=== PATIENT | female | born 1960 | race Caucasian/White ===

== ENCOUNTER → 2020-08-23 12:20 | Outpatient (CLI) | payer OTHER, SELFPAY ==
--- NOTE | ~2020-08-23 | MM_ITS ---
EXAMINATION: MM screening valerie BI w jet HISTORY: Screening mammogram TECHNIQUE: Craniocaudal and mediolateral oblique 3-D tomosynthesis images were obtained and synthetic 2-D images were generated. Bilateral rotated lateral cc views. CAD analysis was submitted and interp reted. COMPARISON: 06/09/2019 left diagnostic mammogram 05/26/2019, 05/09/2018, 04/2016 bilateral digital screening mammogram examinations BREAST PARENCHYMAL COMPOSITION: There are scattered areas of fibroglandular density. FINDINGS: There is no evidence of suspicious mass, calcification, or architectural distortion to sugg est malignancy in either breast. There has been no suspicious interval change. IMPRESSION: 1. No mammographic evidence of malignancy. 2. Recommend routine screening mammography in one year. BI-RADS Category 1: Negative Reviewed, dictated and finalized at location A. STRETCHER HAND
--- NOTE | ~2020-08-23 | DEXA_ITS ---
Bone Density Report Name: Jaelyn Colunga Age: 60 Sex: Female Ethnicity: White Date of : 1960 Indication: postmenopausal; screening for osteoporosis; height loss; prior fracture; Referring Provider: KIZZY, VIOLETA Study: Bone densitometry was performed. Exam Date: August 23, 2020 Accession number: [id number] Bone Density: Region BMD T-score Z-score Classification AP Spine (L1-L4) 1.233 1.7 3.2 Normal Femoral Neck (Right) 0.801 -0.4 0.9 Normal Total Hip (Right) 0.982 0.3 1.3 Normal World Health Organization criteria for BMD impression classify patients as: Normal (T-score at or above -1.0), Osteopenia (T-score between -1.0 and -2.5), or Osteoporosis (T-score at or below -2.5). 10-year Fracture Risk: FRAX not reported because: All T-scores for Spine Total, Hip Total, Femoral Neck at or above -1.0 Previous Exams: Region Exam Age BMD T-score BMD Change BMD Change Date g/cm2 vs Baseline vs Previous AP Spine(L1-L4) 08/23/2020 60 1.233 1.7 -0.046* -0.031 05/09/2018 57 1.264 2.0 -0.015 -0.015 04/01/2015 54 1.279 2.1 Total Hip(Right) 08/23/2020 60 0.982 0.3 -0.130* -0.066 05/09/2018 57 1.048 0.9 -0.064 -0.064 04/01/2015 54 1.112 1.4 *Denotes significance at 95% confidence level, LSC for AP Spine = 0.022 g/cm2, LSC for Total Hip = 0.027 g/cm2 Clinical Information Provided by Patient: Has had a low trauma fracture Has used the following medications: Vitamin D, Calcium, MTV Patient maximum height was 67 Menopause Age: 52 No regular weight bearing exercise Drinks caffeinated beverages Onset of menses at age 13 Number of children 4 Impression: The patient has normal bone mass. The patient has risk factors, including: previous fracture. No significant bone loss was observed. Discussion: BONE DENSITY IS ABOVE THE MINIMUM DESIRABLE LEVEL AT ALL SKELETAL SITES TESTED. This patient?s bone mineral density is above the minimum desirable level (T-score -1.0 or better) at all sites measured. The patient should follow a healthful lifestyle (good nutrition with adequate calcium and vitamin D, and appropriate weight-bearing exercise). Follow-Up: Consider repeating this study in 5 years or sooner if there is some new clinical indication. Reported by: HENRRY on 08/23/2020 12:51:00 PM. Reviewed, dictated and finalized at location AFranchesca LAFLEUR
== END ==
PROVIDERS: Visit Provider Nurse Practitioner
DX: Z12.31 Encounter for screening mammogram for malignant neoplasm of breast (principal); Z78.0 Asymptomatic menopausal state
CPT/HCPCS: 77063; 77067; 77080

== ENCOUNTER → 2021-11-17 11:23 | Outpatient (CLI) | payer OTHER, SELFPAY ==
--- NOTE | ~2021-11-17 | MM_ITS ---
EXAMINATION: MM screening valerie BI w jet HISTORY: Screening mammogram TECHNIQUE: Craniocaudal and mediolateral oblique 3-D tomosynthesis images were obtained and synthetic 2-D images were generated. CAD analysis was submitted and interpreted. COMPARISON: 09/02/2020 bilateral screening mammogram 06/09/2019 diagnostic left mammogram 05/26/2019, 05/09/2018 bilateral screening mammogram examinations BREAST PARENCHYMAL COMPOSITION: The breasts are almost entirely fatty. FINDINGS: There is no evidence of suspicious mass, calcification, or architectural distortion to sugg est malignancy in either breast. There has been no suspicious interval change. IMPRESSION: 1. No mammographic evidence of malignancy. 2. Recommend routine screening mammography in one year. BI-RADS Category 1: Negative Reviewed, dictated and finalized at location A.
== END ==
PROVIDERS: PCP Family Medicine; Visit Provider Obstetrics & Gynecology Gynecology
DX: Z12.31 Encounter for screening mammogram for malignant neoplasm of breast (principal)
CPT/HCPCS: 77063; 77067

== ENCOUNTER 2021-11-29 08:15 | Outpatient (RCR) | payer OTHER, SELFPAY ==
[2021-09-05 13:01] VITALS: BP_SYST 75
--- NOTE | 2021-09-05 14:18 | PTOPEVAL ---
PHYSICAL THERAPY INITIAL EVALUATION. Thank you for referring Jaelyn Colunga to [facility].? The patient is scheduled to be seen for therapy?2x/week for 5 weeks. Please review, sign, date and return this plan of care SERGE. I agree with and certify that the following plan of care is medically necessary. Referring Physician Date Attending Provider: Saurabh Grover, MD *PT Outpatient Evaluation Start: 09/05/21 Evaluation Information Diagnosis Post-op R shoulder biceps tenodesis Onset 08/17/21 Subjective Information Pt states she had chronic Query Text:As Reported By Patient/ shoulder pain for a long time, Family last year she received two cortisone injections. After the second injection, her referring provider suggested surgery. Pt had a arthroscopic subacromial decompression and open bicipital tenodesis on . She had a follow up with her surgeon on 08/30/21 and they were pleased with her progress so far. Her next follow up is 10/11/21. Pain Assessment Reported Pain Level 3 Pain Description Aching,Throbbing Pain Frequency Acute Lowest Pain Intensity 1 Greatest Pain Intensity 8 Pain Aggravating Factors Exercise/Activity,Lifting Additional Pain Comments Sharp pain during overhead movements Upper Extremity Range of Motion Right Shoulder Flexion - Active 78 Shoulder Flexion - Passive 108 Shoulder Abduction - Active 66 Shoulder Abduction - Passive 75 Shoulder Medial Rotation - Active PSIS Shoulder Lateral Rotation - Passive 42 Shoulder Lateral Rotation - Active occiput Upper Extremity Muscle Strength Testing General Upper Extremity Strength Reason Not Measured WFL/Left,Pain Gross Upper Extremity Strength Comments Grossly 2+/5, did not formally assess this date due to pain and ROM limitations Manual Therapy Manual Therapy Location Shoulder Patient Position Supine Manual Therapy Treatment Passive Stretching Treatment Comments Active flexion after passive Query Text:Include Technique and ROM 88 deg. PT Clinical Summary Jaelyn is a 61 y/o female status post a arthroscopic subacromial decompression and open biceps tenodesis after a
[2021-10-09 08:06] VITALS: BP_SYST 108
--- NOTE | 2021-10-09 08:53 | PTOPEVAL ---
PHYSICAL THERAPY PROGRESS REPORT. Thank you for referring Jaelyn Colunga to [facility] [place] [facility] [place] The patient is scheduled to continue therapy?2x/week for 4 weeks. Please review, sign, date and return this plan of care SERGE. I agree with and certify that the following plan of care is medically necessary. Referring Physician Date Attending Provider: Saurabh Grover, Evaluation Information Diagnosis Post-op R shoulder biceps tenodesis Onset 08/17/21 Subjective Information Pt states she is doing well, Query Text:As Reported By Patient/ she reports and demonstrates Family the ability to reach forward over her head, she is still having difficultly reaching behind her back. She is still having soreness and stiffness in the shoulder making it difficulty to sleep. She also reports her shoulder is more sore than she expected. Pain Assessment Self Report Pain Assessment Right Shoulder(s) Reported Pain Level 2 Pain Description Aching,Throbbing Greatest Pain Intensity 6 Upper Extremity Range of Motion Scapular/ Shoulder Range of Motion Right Reason Not Measured WFL/Left Shoulder Flexion - Active 122 Shoulder Flexion - Passive 108 Shoulder Abduction - Active 104 Shoulder Abduction - Passive 108 Shoulder Medial Rotation - Passive 52 Shoulder Medial Rotation - Active PSIS Shoulder Lateral Rotation - Passive 56 Shoulder Lateral Rotation - Active C7 Upper Extremity Muscle Strength Testing Gross Upper Extremity Strength Comments R shoulder flexion 4/5 L shoulder flexion 4+/5 R shoulder abduction 4-/5 L shoulder abduction 4/5 R shoulder ER/IR with elbow at 90deg 4/5 Posture Shoulder Posture (L) Rounded,(R) Rounded Scapula Posture (L) Protracted,(R) Protracted, (L) Rotated Up,(R) Rotated Up Palpation Assessment Palpation posterior deltoid, along lateral shaft of the humerus PT Clinical Summary Jaelyn presented to therapy today for her progress report following a subacromial decompression and biep tenodesis on 08/17/21, since then she has completed 8 therapy sessions. She is progressing in her strength,
--- NOTE | 2021-10-30 10:25 | PCPTNOTE ---
Patient called & cancelled scheduled appointment this date due to not feeling well.
--- NOTE | 2021-11-06 12:47 | PCPTNOTE ---
Patient called & cancelled scheduled appointment this date due to scheduling conflicts. She has rescheduled.
[2021-11-15 08:03] VITALS: BP_SYST 128
--- NOTE | 2021-11-15 09:55 | PTOPEVAL ---
PHYSICAL THERAPY PROGRESS REPORT. Thank you for referring Jaelyn Colunga to [facility].? The patient is scheduled to be seen for therapy? 2x/week for 6 weeks. Please review, sign, date and return this plan of care SERGE. I agree with and certify that the following plan of care is medically necessary. Referring Physician Date Attending Provider: Saurabh Grover, MD Evaluation Information Diagnosis Post-op R shoulder biceps tenodesis Onset 08/17/21 Subjective Information Pt states she is still really Query Text:As Reported By Patient/ limited with her range of Family motion and does not feel like she is progressing that way she should have been. She states it is still really difficult to reach behind her. Pt states she rolled over on her shoulder in the middle of the night and it caused her pain the rest of the night. She states her doctor would like her to get an injection to address the swelling since she is unable to take NSAIDs and then continue with therapy after that. Pain Assessment Self Report Pain Assessment Right Shoulder(s) Reported Pain Level 2 Greatest Pain Intensity 9 Upper Extremity Range of Motion General Upper Extremity Range of Motion WFL/Left Scapular/ Shoulder Range of Motion Left Reason Not Measured WFL/Left Shoulder Flexion - Active 124 Shoulder Flexion - Passive 135 Shoulder Abduction - Active 106 Shoulder Abduction - Passive 128 Shoulder Medial Rotation - Passive 52 Shoulder Medial Rotation - Active PSIS Shoulder Lateral Rotation - Passive 52 Shoulder Lateral Rotation - Active C7 Upper Extremity Muscle Strength Testing General Upper Extremity Strength WFL/Left,Pain Gross Upper Extremity Strength Comments R shoulder flexion 4+/5 L shoulder flexion 4+/5 R shoulder abduction 4/5 L shoulder abduction 4+/5 R shoulder ER/IR with elbow [id number] 4/5 Posture Shoulder Posture (L) Rounded,(R) Rounded Scapula Posture (L) Protracted,(R) Protracted, (L) Rotated Up,(R) Rotated Up Palpation Assessment Palpation superior aspect of the GH joint PT Clinical Summary Jaelyn presented to therapy today for her progress report following a subacromial
--- NOTE | 2021-11-23 13:49 | PCPTNOTE ---
Patient called & cancelled scheduled appointment on 11/22 and 11/27 due to receiving an injection in the shoulder.
--- NOTE | 2021-12-04 14:38 | PCPTNOTE ---
This treatment is being continued on visit number [id number]. Please see documentation on both accounts to view progress. Completed interventions, outcomes, and problems have been marked as Inactive to facilitate the copying of the Care plan routine for recurring accounts.
== END 2021-12-01 10:47 | disposition home or self-care (01) ==
LOC: ANHPT 08:15
PROVIDERS: PCP Family Medicine; Visit Provider Orthopaedic Surgery Orthopaedic Surgery of the Spine
DX: Z48.89 Encounter for other specified surgical aftercare (principal); M25.511 Pain in right shoulder; M75.81 Other shoulder lesions, right shoulder; Z98.890 Other specified postprocedural states
CPT/HCPCS: 97014; 97035; 97110; 97112; 97140; 97161; G0283

== ENCOUNTER 2021-12-27 08:00 | Outpatient (RCR) | payer OTHER, SELFPAY ==
[2021-12-01 10:47] VITALS: BP_SYST 128
--- NOTE | 2021-12-04 14:15 | PCPTNOTE ---
The treatment documented on this account is a continuation of the treatment documented on visit number [id number]. Please see documentation on both accounts to view progress. The Plan of Care has been transitioned and updated within the new V#. I have addressed and agree with the discipline specific Problems, Interventions, and Goals for the current certification period. Completed interventions, outcomes, and problems have been marked as Inactive to facilitate the copying of the Care plan routine for recurring accounts.
--- NOTE | 2021-12-12 07:36 | PCPTNOTE ---
Patient called & cancelled scheduled appointment this date due to emergency with dog needing to take to vet.
[2021-12-27 08:03] VITALS: BP_SYST 132
--- NOTE | 2021-12-27 08:34 | PTOPEVAL ---
PHYSICAL THERAPY PROGRESS REPORT AND DISCHARGE SUMMARY. Thank you for referring Jaelyn Colunga to [facility].? The patient is to be discharged from skilled therapy services at this time. Please review, sign, date and return this plan of care SERGE. I agree with and certify that the following plan of care is medically necessary. Referring Physician Date Attending Provider: Saurabh Grover, MD *PT Outpatient Evaluation Start: 12/27/21 Evaluation Information Diagnosis Post-op R shoulder biceps tenodesis Onset 08/17/21 Subjective Information Pt states her strength is Query Text:As Reported By Patient/ doing excellent. Pt states she Family has received all of her motion except for reaching behind her back, she is able to reach completely over her head and into the back seat of her car. She reports still intermittent achiness but nothing like before. Pt states daily activities do not cause her an increase in pain, only when working on her int rot stretch at home. Pain Assessment Self Report Pain Assessment Right Shoulder(s) Reported Pain Level 0 Greatest Pain Intensity 0 Upper Extremity Range of Motion Scapular/ Shoulder Range of Motion Right Shoulder Flexion - Active 132 Shoulder Flexion - Passive 142 Shoulder Abduction - Active 136 Shoulder Abduction - Passive 132 Shoulder Medial Rotation - Passive 55 Shoulder Medial Rotation - Active T12, off to the R Shoulder Lateral Rotation - Passive 65 Shoulder Lateral Rotation - Active T3 Scapular/Shoulder Range of Motion passive abduction measured in Comments true abduction passive shoulder ext/int rot measure in 90 deg of abduction Upper Extremity Muscle Strength Testing Gross Upper Extremity Strength Comments BUE grossly 5/5 including shoulder flexion, abduction, ext rot, int rot, and elbow flexion and extension Posture Shoulder Posture (L) Rounded,(R) Rounded Palpation Assessment Palpation none reported PT Clinical Summary Jaelyn presents to therapy today for her progress report following 22 visits of skilled therapy to treat her diagnosis of R shoulder biceps tenodesis performed on 08/17/21
== END 2021-12-27 13:52 | disposition home or self-care (01) ==
LOC: ANHPT 08:00
PROVIDERS: PCP Family Medicine; Visit Provider Orthopaedic Surgery Orthopaedic Surgery of the Spine
DX: Z48.89 Encounter for other specified surgical aftercare (principal); M25.511 Pain in right shoulder; M75.81 Other shoulder lesions, right shoulder; Z98.890 Other specified postprocedural states
CPT/HCPCS: 97110; 97112; 97140; 97530

== ENCOUNTER 2023-01-04 19:54 | Emergency (ER) | payer OTHER, SELFPAY ==
--- NOTE | ~2023-01-04 | CT_ITS ---
EXAMINATION: CT cervical spine wo con DATE: 01/04/2023 21:36 INDICATION: neck pain TECHNIQUE: Computed tomography (CT) of the cervical spine was performed without intravenous contrast. Automated exposure control and iterative reconstruction technique were employed. The dose-length pro duct was 536.10 mGy-cm. COMPARISON: 08/27/2018. FINDINGS: Vertebral Body Alignment: Intact. Cervical spine straightening as can occur with positioning or muscl e spasm. Trace stable retrolisthesis at C5-6. Craniocervical and atlantoaxial alignment: Moderate degenerative change. Alignment intact. Osseous structures/fracture: No evidence of a lytic or blastic process in the visualized spine. No e vidence of acute fracture. At Cervical soft tissues: The paraspinal soft tissues planes are maintained. Degenerative changes: Degenerative changes, without severe neural foraminal or central canal narrowin g. IMPRESSION: No acute fracture or traumatic malalignment in the cervical spine. Reviewed, dictated and finalized at location K.
--- NOTE | ~2023-01-04 | CT_ITS ---
EXAMINATION: CT brain wo con DATE: 01/04/2023 21:36 INDICATION: head injury . TECHNIQUE: Computed tomography (CT) of the head was performed without intravenous contrast. The mA wa s adjusted according to patient size. Iterative reconstruction technique was employed. The dose-lengt h product was 681.00 mGy-cm. COMPARISON: 08/17/2018. FINDINGS: No acute intracranial hemorrhage or extra-axial fluid collection. No hydrocephalus, mass, or herniation. No acute ischemic infarct. Unremarkable dural venous sinus attenuation. No acute osseous abnormality. Left posterior scalp contusion. The aerated spaces are clear. Mild atrophy and chronic white matter change. Atherosclerotic intracranial calcification. IMPRESSION: No acute intracranial process. Reviewed, dictated and finalized at location K.
[2023-01-04 20:02] VITALS: BP 144/85; PULSE 71; RESP 18; TEMP 36.3; O2SAT 100
--- NOTE | 2023-01-04 21:14 | ED.GENADULT ---
HPI - General Adult General Chief complaint: Trauma Stated complaint: fall off ladder-1/2 steps Time Seen by Provider: 01/04/23 20:21 History of Present Illness HPI narrative: 62-year-old female presented the emergency department for evaluation after having a fall from a ladder. Patient states she did fall back strike her head and is unsure if she had loss of consciousness. Patient was complaining of head neck pain. Patient denies any back chest or abdominal pain. Patient denies any other pain or injury. Patient is not on any blood thinners. Patient did not take medication for pain control at home. Related Data Allergies Allergy/AdvReac Type Severity Reaction Status Date / Time aspirin Allergy Unknown Ulcers Verified 01/04/23 20:06 NSAIDS (Non-Steroidal Allergy Unknown Ulcers Verified 01/04/23 20:06 Anti-Inflamma Review of Systems Review of Systems: All systems reviewed & are unremarkable except as noted in HPI and below PMFSH Past Medical History Medical History Chronic insomnia HTN (hypertension) Hypothyroidism Tremor Vitamin D deficiency, unspecified Surgical History Surgical History H/O gastric bypass Family History Family History Father Hypertension Family history of cardiovascular disease Family history of heart disease in male family member before age 55 Sibling Hypertension Family history of cardiovascular disease Family history of diabetes mellitus in first degree relative Family history of type 2 diabetes mellitus Patient's brother is , Onset Age: 55 Acute myocardial infarction, Onset Age: 55 Mother Family history of cardiovascular disease Patient's mother is , Onset Age: 81 Father Diabetes mellitus Hypertension Sibling Hypertension Family history of cardiovascular disease, Onset Age: 65 Mother Family history of cardiovascular disease Other Cerebrovascular accident Family history of arthritis Social History Social History Smoking status: Never smoker Second hand tobacco smoke exposure: No Alcohol intake: current Alcohol use details: social drinker Substance use: never Substance use type: does not use Living arrangements: with family Occupation/Education: retired Gender identity (if verbalized by the patient): Female Exam Narrative: APPEARANCE: Well appearing, no pain, no distress, well-nourished. HEAD: normocephalic, posterior scalp hematoma. EYES: PERRLA/EOMI, conjunctivae clear. NOSE: Normal no drainage EARS:TMS clear with good light reflex. THROAT: Pharynx clear, no exudate. NECK: Supple. No adenopathy, no masses. Patient is in a c-collar RESPIRATORY: Airway patent, respirations nonlabored. Clear to auscultation bilaterally, no rales, rhonchi, wheezing. CARDIOVASCULAR: Regular rate and rhythm without murmurs rubs or gallops. ABDOMINAL: Soft, nontender, nondistended, normal bowel sounds MUSCULOSKELETAL: Moves all extremities. Strength/ROM intact, No edema, No calf tenderness. NEURO: Alert. Cranial nerves II through XII intact. Grossly intact SKIN: Warm, dry. Normal Color Course Course Emergency Course: 62-year-old female presented ED for evaluation after having a fall from a ladder. Patient denies any other pain or injury other than her head and neck. Imaging was negative for acute fracture or dislocation. Patient and family were updated on the results of the work-up and plan for discharge and close follow-up. They also educated on symptomatic treatment at home and on reasons to return the emergency department and on the importance of close follow-up with the patient's primary care physician. All question concerns were addressed. Patient was stable at time of discharge Vital Signs
[2023-01-04] MEDS: CYCLOBENZAPRINE HCL 10 MG TABLET PO (21:19)
[2023-01-04] MEDS: HYDROmorphone HCL INJ (*CRX) 1 MG/ML SYR 0.5 MG IV PUSH (21:19)
[2023-01-04] MEDS: ONDANSETRON INJ 4 MG/2 ML VIAL IV PUSH (21:51)
== END 2023-01-04 22:38 | disposition home or self-care (01) ==
PROVIDERS: Emergency Provider Emergency Medicine; PCP Family Medicine
DX: S09.90XA Unspecified injury of head, initial encounter (principal); W11.XXXA Fall on and from ladder, initial encounter; I10 Essential (primary) hypertension; E03.9 Hypothyroidism, unspecified; Z79.82 Long term (current) use of aspirin
CPT/HCPCS: 70450; 72125; 96374; 96375; 99284; A9270; J1170; J2405

== ENCOUNTER → 2023-06-11 13:31 | Outpatient (CLI) | payer OTHER, SELFPAY ==
--- NOTE | ~2023-06-11 | US_ITS ---
Thyroid ultrasound. Clinical History: Thyroid nodule COMPARISON: 11/01/2017 Findings: Real-time sonography of the thyroid gland was performed. The right lobe measures 4.8 x 1.8 x 1.7 cm. The left lobe measures 4.6 x 1.4 x 1.4 cm. The isthmus is 2 mm in AP diameter. Thyroid parenchyma is diffusely heterogeneous. There is a 9 mm hyperechoic solid nodule at the left u pper pole (TIRADS 3). There is a 1.4 x 0.5 cm hypoechoic solid nodule at the inferior right side of t he isthmus (TIRADS 4). Impression: Thyroid nodules, as detailed above, probably unchanged from prior exam. Reviewed, dictated and finalized at location M. [employer] AND [employer] PROFESSOR Impression: Thyroid nodules, as detailed above, probably unchanged from prior exam.
== END ==
PROVIDERS: PCP Nurse Practitioner; Visit Provider Nurse Practitioner
DX: E04.2 Nontoxic multinodular goiter (principal)
CPT/HCPCS: 76536

== ENCOUNTER 2023-10-01 13:27 | Outpatient (CLI) | payer OTHER, SELFPAY ==
--- NOTE | ~2023-10-01 | MM_ITS ---
EXAMINATION: MM screening valerie BI w jet HISTORY: Screening TECHNIQUE: Craniocaudal and mediolateral oblique 3-D tomosynthesis images were obtained and synthetic 2-D images were generated. CAD analysis was submitted and interpreted. COMPARISON: Comparison to multiple prior studies sequentially, with oldest reviewed study dated 10/2015. BREAST PARENCHYMAL COMPOSITION: Not Dense: Breast are almost entirely fatty. FINDINGS: There is no evidence of suspicious mass, calcification, or architectural distortion to sugg est malignancy in either breast. There has been no suspicious interval change. IMPRESSION: 1. No mammographic evidence of malignancy. 2. Recommend routine screening mammography in one year. BI-RADS Category 1: Negative Reviewed, dictated and finalized at location A.
== END 2023-10-01 13:28 ==
LOC: MICIMG 13:28
PROVIDERS: PCP Nurse Practitioner; Visit Provider Nurse Practitioner
DX: Z12.31 Encounter for screening mammogram for malignant neoplasm of breast (principal)
CPT/HCPCS: 77063; 77067

== ENCOUNTER 2024-10-20 09:50 | Outpatient (CLI) | payer MEDICARE, OTHER, SELFPAY ==
--- NOTE | ~2024-10-20 | US_ITS ---
Thyroid ultrasound. Clinical History: Thyroid nodule COMPARISON: 06/11/2023 Findings: Real-time sonography of the thyroid gland was performed. The right lobe measures 4.4 x 2.1 x 1.4 cm. The left lobe measures 4.4 x 1.4 x 1.8 cm. The isthmus is 3 mm in AP diameter. Thyroid parenchyma is diffusely heterogeneous. There is a 0.9 x 0.7 x 0.6 cm solid hyperechoic circum scribed nodule at the left upper pole, unchanged. Impression: Stable diffusely heterogeneous thyroid parenchyma, as well as stable 9 mm hyperechoic solid nodule at the left upper pole.. Reviewed, dictated and finalized at location . Impression: Stable diffusely heterogeneous thyroid parenchyma, as well as stable 9 mm hyper echoic solid nodule at the left upper pole..
--- NOTE | ~2024-10-20 | MM_ITS ---
EXAMINATION: MM screening [facility] BI w jet HISTORY: Screening TECHNIQUE: Craniocaudal and mediolateral oblique 3-D tomosynthesis images were obtained and synthetic 2-D images were generated. CAD analysis was submitted and interpreted. COMPARISON: Comparison to multiple prior studies sequentially, with oldest reviewed study dated 04/15. BREAST PARENCHYMAL COMPOSITION: Not Dense: The breasts are almost entirely fatty. FINDINGS: There is no evidence of suspicious mass, calcification, or architectural distortion to sugg est malignancy in either breast. There has been no suspicious interval change. IMPRESSION: 1. No mammographic evidence of malignancy. 2. Recommend routine screening mammography in one year. BI-RADS Category 1: Negative Reviewed, dictated and finalized at location A.
== END 2024-10-20 09:51 | disposition home or self-care (01) ==
LOC: MICIMG 09:52
PROVIDERS: PCP Family Medicine; Visit Provider Nurse Practitioner
DX: Z12.31 Encounter for screening mammogram for malignant neoplasm of breast (principal); E03.9 Hypothyroidism, unspecified; E04.1 Nontoxic single thyroid nodule
CPT/HCPCS: 76536; 77063; 77067

== ENCOUNTER 2024-12-22 01:28 | Day surgery (SDC) | payer MEDICARE, OTHER, SELFPAY ==
[2024-12-11 13:21] VITALS: BMI 35.2
--- OUTSIDE RECORDS SUMMARY | 2024-12-22 01:32 | XMS_ITS | Clinical Summary ---
Author Organization [facility] Address [facility] [place] [address] Care Team Providers Care Marine Equipment Sales Engineer Name Role Phone Vicente Chavez MD Primary Care Provider Allergies Active Allergy Reactions Criticality Noted Date Comments Hydromorphone Itching Low 07/16/2018 Can tolerate with benadryl Nsaids (Non-Steroidal Anti-Inflammatory Drug) Other (See comments) Low 07/02/2018 Pt has gastric bypass Medications zolpidem (AMBIEN) 10 mg tabletIndicati ons:Sleep-Onse t Insomnia Take 1 tablet (10 mg total) by mouth nightly Active calcium citrate-vitami n D3 (CITRACAL WITH D) 315-250 mg-unit per tabletIndicati ons:Hypocalcem ia Prevention,Vit chand D Deficiency Take 1 tablet by mouth nightly Active multivitamin capsuleIndicat ions:Vitamin Deficiency Prevention Take 1 capsule by mouth nightly Active acetaminophen (TYLENOL) 325 mg tablet Take 2 tablets (650 mg total) by mouth every 6 (six) hours as needed for pain Active lisinopriL (PRINIVIL,ZEST RIL) 5 mg tabletIndicati ons:hypertensi on Take 1 tablet (5 mg total) by mouth every morning Active cyanocobalamin , vitamin B-12, (VITAMIN B-12 ORAL)Indicatio ns:supplement Take 1 tablet by mouth nightly Active BIOTIN ORALIndication s:supplement Take 1 tablet by mouth nightly Active levothyroxine (SYNTHROID) 125 mcg tabletIndicati ons:hypothyroi dism Take 1 tablet (125 mcg total) by mouth pararescue manager before breakfast 07/30/19 23 Active primidone (MYSOLINE) 50 mg tablet TAKE 1 TABLET(50 MG) BY MOUTH TWICE DAILY 60 tablet 3 12/09/19 25 Active primidone (MYSOLINE) 50 mg tablet Take 1 tablet (50 mg total) by mouth 2 (two) times a day 60 tablet 3 08/10/19 25 025 Discontinued Active Problems Problem Noted Date Diagnosed Date Trigger ring finger of right hand 09/22/2023 Mild aortic stenosis 08/07/2022 Chest tightness 12/22/2021 Tear of right rotator cuff 06/20/2021 Overview (06/20/2021): Added automatically from request for surgery [id number] Biceps tendinitis of right upper extremity 06/20 Overview (06/20/2021): Added automatically from request for surgery [id number] Symptomatic PVCs 11/18/2020 Mild mitral regurgitation 05/13/2020 Orthostatic hypotension 05/13/2020 Paroxysmal atrial tachycardia 05/13/2020 Tremor 03/15/2020 Trigger middle finger of left hand 06/16/2019 Overview (06/16/2019): Added automatically from request for surgery [id number] Ganglion cyst of finger 06/16/2019 Overview (06/16/2019): Added automatically from request for surgery [id number] Subclinical iodine-deficiency hypothyroidism Trochanteric bursitis of left hip 07/30/2018 Overview (07/30/2018): Added automatically from request for surgery [id number] Trigger middle finger of right hand 06/19/2018 Overview (06/19/2018): Added automatically from request for surgery [id number] Fall from horse 02/08/2018 Closed nondisplaced fracture of base of second metacarpal bone of left hand 02/07/2018 Fracture of multiple ribs of left side 8 Hypothyroidism 07/02/2017 Arthralgia of hip 04/08/2017 Primary osteoarthritis of shoulder 01/08/2017 Strain of muscle, fascia and tendon at neck level, initial encounter 01/08/2017 DVT prophylaxis 01/17/2015 Morbid obesity with BMI of 45.0-49.9, adult 12/2014 Hypothyroidism 01/17/2015 DJD (degenerative joint disease) of knee 014 Family history of premature CAD 11/17/2013 Morbidly obese 11/17/2013 Pain of hand 03/20/2013 Encounter for preventive health examination 02/14 Essential hypertension, benign 11/08/2010 Thyroid nodule 11/08/2010 Overview (09/24/2022): Overview: Left upper 1.0 cm Left upper 1.0 cm Vitamin D deficiency 11/08/2010 Surgical History Surgery Date Site/Laterality Comments GASTRIC BYPASS 07/15/2014 - 07/14/2015 has lost 140lbs total MA CHOLECYSTECTOMY 07/15/2002 - 07/14/2003 INCISIONAL HERNIA REPAIR 07/15/2004 - 07/14/2005 x2, umbilical s/p tubal 1995 & 2004 TRIGGER FINGER RELEASE 07/16/2018 Left long CARPAL TUNNEL RELEASE 07/15/2012 - 07/14/2013 Bilateral SECTION 07/15/1993 - 07/14/1994 HIP SURGERY 08/15/2018 - 09/11/2018 Left bursectomy and tendon repair with hardware COLONOSCOPY TUBAL LIGATION 07/15/1993 - 07/14/1994 FLUORO GUIDED INJECTION SHOULDER RIGHT 04/20/2021 Right HAND SURGERY 07/15/2012 - 07/14/2013 Right hand fracture with plate, pins, screws FLUORO GUIDED INJECTION SHOULDER RIGHT 11/27/2021 Right SHOULDER ARTHROSCOPY 08/17/2021 Right Medical History Medical History Date Comments Hypothyroidism well controlled with meds Fracture 01/2018 fell off horse a nd fractured left wrist and 3left ribs. No surgery required. Note in EPIC stating fractures are healed Hot flashes HTN (hypertension) Insomnia Tremors of nervous system bilat UE., right > Left. worse with stress, well controlled on daily meds Palpitations neg work up 2019 Family History Medical History Relation Name Comments Heart disease Brother 1 Family history of cardiac disorder - (Added by TW Conv) Diabetes Brother 2 Alok Family history of diabetes mellitus - (Added by TW Conv) Heart disease Brother 2 Alok Hypertension Brother 2 Alok Hypertension Brother 3 Family history of hypertension - (Added by TW Conv) Thyroid disease Daughter Thyroid trou ble - (Added by TW Conv) Diabetes Father Raza Family history of diabetes mellitus - (Added by TW Conv) Heart disease Father Raza Family history of cardiac disorder - (Added by TW Conv) Hypertension Father Raza Family history of hypertension - (Added by TW Conv) Stroke Father Raza Family history of cerebrovascular accident (CVA) - (Added by TW Conv) Heart disease Mother Jessica Family history of cardiac disorder - (Added by TW Conv) Stroke Mother Jessica Family history of cerebrovascular accident (CVA) - (Added by TW Conv) Heart disease Sister 1 Lela Family history of cardiac disorder - (Added by TW Conv) Diabetes Sister 2 Abbi Family history of diabetes mellitus - (Added by TW Conv) Hypertension Sister 3 Family history of hypertension - (Added by TW Conv) Anesthesia problems Neg Hx Relation Name Status Comments Brother 1 Brother 2 Alok Brother 3 Daughter Father Raza Mother Jessica Sister 1 Lela Sister 2 Abbi Sister 3 Social History Tobacco Use Types Packs/Day Years Used Date Smoking Tobacco: Never Smokeless Tobacco: Never Tobacco Cessation:Counseling Given: Not Answered Alcohol Use Standard Drinks/Week Comments Yes 0 (1 standard drink = 0.6 oz pure alcohol) rarely--1 drink every 3-4 months AUDIT-C Answer Date Recorded Q1: How often do you have a drink containing alc ohol? 2-4 times a month 10/09/2023 Q2: How many drinks containi ng alcohol do you have on a typical day when you are drinking? 1 or 2 10/09/2023 Q3: How often do you have si x or more drinks on one occasion? Never 10/09/2023 Personal Safety Answer Date Recorded Have you ever been in or are you currently in a harmful physical or emotional relationship or is someone making you feel afraid or unsafe? Denies 10/09/2023 Comments No Sex and Gender Information Value Date Recorded Sex Assigned at Not on file Legal Sex Female 10:05 AM STREETS AND BUILDINGS DECORATOR Gender Identity Not on file Sexual Orientation Not on file Occupation Industry Job Start Date Job End Date Not Employed Not on file Not on file Not on file Obstetrics History Last Filed Vital Signs Vital Sign Reading Time Taken Comments Blood Pressure 149/81 08/10/2024 9:39 AM STREETS AND BUILDINGS DECORATOR Pulse 65 08/10/2024 9:39 AM STREETS AND BUILDINGS DECORATOR Temperature 36.1 C (97 F) 10/09/2023 9:35 AM CDT Respiratory Rate 11 10/09/2023 10:50 AM CDT Oxygen Saturation 97% 08/10/2024 9:39 AM STREETS AND BUILDINGS DECORATOR Inhaled Oxygen Concentration - - Weight 103 kg (227 lb) 08/10/2024 9:39 AM STREETS AND BUILDINGS DECORATOR Height 170.2 cm (5' 7.01) 08/10/2024 9:39 AM CS T Body Mass Index 35.54 08/10/2024 9:39 AM STREETS AND BUILDINGS DECORATOR Plan of Treatment Health Maintenance Due Date Last Done Comments Breast Cancer Screening-Mammogram 1959 Cervical Cancer Screening 1959 Colon Cancer Screening-Colonoscopy 1959 Depression Screening 1959 Hepatitis C Screening 1959 Osteoporosis Screening-Bone Density Scan 1959 DTaP/Tdap/Td Vaccine (1 - Tdap) 1970 Hepatitis B Screening 1977 Pneumococcal vaccine 65+ (1 of 1 - PCV) 2009 Zoster Vaccine (1 of 2) 2009 Covid-19 Vaccine (4 - season) 2024 06/05/2021, 09/29/2020, 09/08/2020 Well Visit 65+ 2024 Fall Risk Assessment 10/08/2024 10/09/2023 Influenza Vaccine (Season Ended) 2025 04/25/20 20 Medical Devices Implanted Type Area Residential Pest Control Technician Device Identifier Shelf Expiration Date Model / Serial / Lot Plate Right: Hand [employer] [id number] Swivelock Tigerwire Arthrex 4.75mm 22mm 2 Load 2 Tip Retention - S0 - [id number] Implanted:Qty: 4 on 09/04/2018 by Letitia Diaz MD at [facility] [employer] 05/14/2020 [id number] -[id number] / 0 / [id number] [employer] Ar-3670 Set Implant Arthrex Fibertak Biceps Sterile Latex Free - [id number] Implanted:Qty: 1 on 08/17/2021 by Saurabh Grover MD at [facility] Right: Shoulder [employer] 05/14/2026 AR-3670 / / [id number] Insurance [facility] CLAIMS [facility] CLAIMS MEDICARE FOR LIFE Care Teams Marine Equipment Sales Engineer Relationship Specialty Start Date End Date Vicente Chavez MD [address] [place] [address] PCP - General Family Medicine 01/26/19
--- OUTSIDE RECORDS SUMMARY | 2024-12-22 01:32 | XMS_ITS | Referral Summary ---
Author Organization [facility] Address [facility] [place] [address] Care Team Providers Care Tin Container Straightener Name Role Phone Vicente Chavez MD Primary [...] 1 tablet (125 mcg total) by mouth hemstitcher before breakfast 07/30/19 23 Active primidone (MYSOLINE) [...] (06/20/2021): Added automatically from request for surgery [id number] Biceps tendinitis of right upper extremity 06/20 Overview (06/20/2021): Added automatically from request for surgery [id number] Symptomatic PVCs 11/18/2020 Mild mitral regurgitation 05/13/2020 Orthostatic hypotension 05/13/2020 Paroxysmal atrial tachycardia 05/13/2020 Tremor 03/15/2020 Trigger middle finger of left hand 06/16/2019 Overview (06/16/2019): Added automatically from request for surgery [id number] Ganglion cyst of finger 06/16/2019 Overview (06/16/2019): Added automatically from request for surgery [id number] Subclinical iodine-deficiency hypothyroidism Trochanteric bursitis of left hip 07/30/2018 Overview (07/30/2018): Added automatically from request for surgery [id number] Trigger middle finger of right hand 06/19/2018 Overview (06/19/2018): Added automatically from request for surgery [id number] Fall from horse 02/08/2018 Closed nondisplaced fracture of base of second metacarpal bone of left hand 02/07/2018 Fracture of multiple ribs of left side 8 Hypothyroidism 07/02/2017 Arthralgia of hip 04/08/2017 Primary osteoarthritis of shoulder 01/08/2017 Strain of muscle, fascia and tendon at neck level, initial encounter 01/08/2017 DVT prophylaxis 01/17/2015 Morbid obesity with BMI of 45.0-49.9, adult 0 12/2014 Hypothyroidism 01/17/2015 DJD (degenerative joint disease) of knee 014 Family history of premature CAD 11/17/2013 Morbidly obese 11/17/2013 Pain of hand 03/20/2013 Encounter for preventive health examination 02/14 Essential hypertension, benign 11/08/2010 Thyroid nodule 11/08/2010 Overview (09/24/2022): Overview: Left upper 1.0 cm Left upper 1.0 cm Vitamin D deficiency 11/08/2010 Social History Tobacco Use Types Packs/Day Years [...] on file Legal Sex Female 10:05 AM HOT STRIP FINISHER Gender Identity Not on file Sexual Orientation Not on file Occupation Industry Job Start Date Job End Date Not Employed Not on file Not on file Not on file Last Filed Vital Signs Vital Sign Reading Time Taken Comments Blood Pressure 149/81 08/10/2024 9:39 AM HOT STRIP FINISHER Pulse 65 08/10/2024 9:39 AM HOT STRIP FINISHER Temperature 36.1 C (97 F) 10/09/2023 9:35 AM CDT Respiratory Rate 11 10/09/2023 10:50 AM CDT Oxygen Saturation 97% 08/10/2024 9:39 AM HOT STRIP FINISHER Inhaled Oxygen Concentration - - Weight 103 kg (227 lb) 08/10/2024 9:39 AM HOT STRIP FINISHER Height 170.2 cm (5' 7.01) 08/10/2024 9:39 AM CS T Body Mass Index 35.54 08/10/2024 9:39 AM HOT STRIP FINISHER Plan of Treatment Not on file Medical Devices Implanted Type Area Leasing Professional Device Identifier Shelf Expiration Date Model / Serial / Lot Plate Right: Hand [employer] [id number] Swivelock Tigerwire Arthrex 4.75mm 22mm 2 Load 2 Tip Retention - S0 - [id number] Implanted:Qty: 4 on 09/04/2018 by Letitia Diaz MD at [facility] [employer] 05/14/2020 [id number] -[id number] / 0 / [id number] [employer] Ar-3670 Set Implant Arthrex Fibertak Biceps Sterile Latex Free - [id number] Implanted:Qty: 1 on 08/17/2021 by Saurabh Grover MD at [facility] Right: Shoulder [employer] 05/14/2026 AR-[id number] / / [id number] Insurance [facility] CLAIMS [facility] CLAIMS MEDICARE FOR LIFE Care Teams Tin Container Straightener Relationship Specialty Start Date End Date Vicente Chavez MD [address] [place] [address] PCP - General Family Medicine 01/26/19
--- OUTSIDE RECORDS SUMMARY | 2024-12-22 01:32 | XMS_ITS | Clinical Summary ---
Author Organization [facility] Address [address] [place] [address] Phone Care Team Providers Care Administrative Resident Name Role Phone Vicente Chavez MD Primary Care Provider [phone] Allergies Active Allergy Reactions Criticality Noted Date Comments Hydromorphone Itching Low 07/16/2018 If she takes pain killers- she has to take benadryl with it Nsaids (Non-Steroidal Anti-Inflammatory Drug) Other (See Comments) Low 07/02/2018 Pt has gastric bypass Medications zolpidem (AMBIEN) 10 mg tablet Take 10 mg by mouth nightly as needed. Active MULTIVITAMIN ORAL Take by mouth. Active acetaminophen (TYLENOL) 500 mg tablet Take 2 Tablets (1,000 mg) by mouth every 8 hours as needed for Pain Do not exceed 4,000mg/day. 02/09/2018 Active calcium citrate-vitamin d3 (CITRACAL D MAX) 315 mg- 250 unit Tablet Take 1 Tablet by mouth daily at bedtime. Active levothyroxine 150 mcg tablet Take 125 mcg by mouth daily in the morning. Active primidone (MYSOLINE) 50 mg tablet Take 50 mg by mouth 2 times daily. Active CYANOCOBALAMIN, VITAMIN B-12, ORAL Take by mouth. Active VIT B COMP NO.3-RGPNG-T-BI OTIN ORAL Take by mouth. Active lisinopriL (PRINIVIL) 5 mg tablet TAKE 1 TABLET BY MOUTH EVERY DAY 90 Tablet 3 10/19/2024 Active atorvastatin (LIPITOR) 10 mg tablet Take 1 Tablet by mouth daily. 08/19/2024 Active Active Problems Patient Care Coordination No te Formatting of this note migh t be different from the original. Alexi Burch MD at [facility] - CV Problem Noted Date Diagnosed Date Mild aortic stenosis 08/07/2022 Chest tightness 12/22/2021 Symptomatic PVCs 11/18/2020 Orthostatic hypotension 05/13/2020 Paroxysmal atrial tachycardia 05/13/2020 Mild mitral regurgitation 05/13/2020 Fall from horse 02/08/2018 Fracture of multiple ribs of left side 8 Closed nondisplaced fracture of base of second metacarpal bone of left hand 02/07/2018 Hypothyroidism 01/17/2015 Morbid obesity with BMI of 45.0-49.9, adult 12/2014 DVT prophylaxis 01/17/2015 DJD (degenerative joint disease) of knee 014 Morbidly obese 11/17/2013 Family history of premature CAD 11/17/2013 Thyroid nodule 11/08/2010 Overview (11/08/2010): Left upper 1.0 cm Vitamin D deficiency 11/08/2010 Essential hypertension, benign 11/08/2010 Subclinical iodine-deficiency hypothyroidism Encounters Date Type Department Care Team Description 12/08/2024 External Device Data [facility] ABSTRACTION Provider, Abstract 12/02/2024 External Device Data [facility] ABSTRACTION Provider, Abstract 12/01/2024 External Device Data [facility] ABSTRACTION Provider, Abstract 11/10/2024 External Device Data [facility] ABSTRACTION Provider, Abstract 11/10/2024 External Device Data [facility] ABSTRACTION Provider, Abstract 11/06/2024 8:45 AM CDT Office Visit [facility] [address] [address] [place] [address] Alexi Burch MD Essential hypertension, benign (Primary Dx); Mild aortic stenosis; Mild mitral regurgitation 11/06/2024 Orders Only [facility] At [address] [place] [address] Provider, Abstract 10/16/2024 Refill [facility] [address] [place] [address] Alxei Burch MD from Last 3 Months Family History Medical History Relation Name Comments Diabetes Brother Heart Attack Brother Hypertension Brother Diabetes Father Heart Disease Father Hypertension Father Stroke Father Valvular Heart Disease Father Heart Disease Mother Respiratory Disease Mother Stroke Mother Diabetes Sister 1 Hypertension Sister 1 Relation Name Status Comments Brother Father Alive Mother Sister 1 Alive Sister 2 Alive Social History Tobacco Use Types Packs/Day Years Used Date Smoking Tobacco: Never Smokeless Tobacco: Never Tobacco Cessation:Counseling Given: Not Answered Alcohol Use Standard Drinks/Week Comments No 0 (1 standard drink = 0.6 oz pur e alcohol) Comments No Sex and Gender Information Value Date Recorded Sex Assigned at Not on file Legal Sex Female 6:01 AM WAFER FABRICATION OPERATOR Gender Identity Not on file Sexual Orientation Not on file Occupation Industry Job Start Date Job End Date Not on file Not on file Not on file Not on file Last Filed Vital Signs Vital Sign Reading Time Taken Comments Blood Pressure 114/78 11/06/2024 8:31 AM CDT Pulse 72 11/06/2024 8:31 AM CDT Temperature 36.5 C (97.7 F) 11/18/2020 10:06 AM CDT Respiratory Rate 20 02/09/2018 9:07 AM CDT Oxygen Saturation 97% 11/06/2024 8:31 AM CDT Inhaled Oxygen Concentration - - Weight 103.4 kg (228 lb) 11/06/2024 8:31 AM CDT Height 167.6 cm (5' 6) 11/06/2024 8:31 AM CDT Body Mass Index 36.8 11/06/2024 8:31 AM CDT Plan of Treatment Upcoming Encounters Date Type Department Care Team (Late st Contact Info) Description 11/08/2025 9:30 AM CDT Office Visit [facility] [address] [place] [address] Alexi Burch MD [address] [facility] [address] [place] [address] Health Maintenance Due Date Last Done Comments DTAP/TDAP/TD VACCINES (1 - Tdap) 1978 BREAST CANCER SCREENING 1999 FIT-DNA Q 3 years 2004 FIT/FOBT Q 1 year 2004 Flex Sig/CT Colonography Q 5 years 2004 PNEUMOCOCCAL VACCINE 50+ YEARS (1 of 1 - PCV) 07/26/19 10 ZOSTER VACCINE (1 of 2) 2009 RSV VACCINE (60+ or ) (1 - Risk 60-74 years 1-dose series) 2019 INFLUENZA VACCINE (#1) 2024 OSTEOPOROSIS SCREENING 2024 COLORECTAL SCREENING 12/10/2024 12/10/2014 Colorectal Cancer Screening 12/10/2024 Pre-Diabetes and Diabetes Screening 05/07/202505/07 Medical Devices Implanted Type Area Aviation Technician Device Identifier Shelf Expiration Date Model / Serial / Lot Metal Plate 5th Metacarpal Right Hand Seamguard Bio 60 [id number] - [id number] Implanted:Qty: 2 on 01/17/2015 by Drew Moon MD at [facility] N/A: Stomach [employer] 09/11/2017 [id number] / / [id number] Explanted Type Area Aviation Technician Device Identifier Shelf Expiration Date Model / Serial / Lot Tube Carlson Jejunostomy 16fr Ltx [id number] - [id number] Explanted:Qty: 1 on 01/17/2015 at [facility] Feeding Device CR BARD- MED DIV [id number] / / Description:RN'S PUT IN ON S UPPLIES SIDE Procedures Procedure Name Priority Date/Time Associated Diagnosis Comments HEMOGLOBIN A1C Routine 05/07/2022 10:05 AM CDT Dizziness from Last 3 Months or Most Recently Relevant to Health Maintenance Results * (ABNORMAL) HEMOGLOBIN A1C (05/07/2022 10:05 AM CDT) HEMOGLOBIN A1C 5.8(H) <5.7 % of total Hgb [facility] Comment: For someone without known diabetes, a hemoglobin A1c value between 5.7% and 6.4% is consistent with prediabetes and should be confirmed with a follow-up test. For someone with known diabetes, a value <7% indicates that their diabetes is well controlled. A1c targets should be individualized based on duration of diabetes, age, comorbid conditions, and other considerations. This assay result is consistent with an increased risk of diabetes. Currently, no consensus exists regarding use of hemoglobin A1c for diagnosis of diabetes for children. ESTIMATED AVERAGE GLUCOSE (MG/DL) 120 mg/dL [facility] ESTIMATED AVERAGE GLUCOSE (MMOL/L) 6.6 mmol/L [facility] Comment: Test Performed at: [facility] [id number] [place] [address] Edwardo Valderrama D.O., MPH Blood 05/07/2022 10:0 5 AM CDT 05/08/2022 4:19 AM CDT Viki Shin [facility] CHEMISTRY ORDERABLES Final Result [facility] [phone] [facility] [address] [place] [address] from Last 3 Months or Most Recently Relevant to Health Maintenance Insurance [facility] MEDICARE PART A AND B [employer] Advance Directives For more information, please contact: [phone] * Full Code (Latest Code Status on File) Date Activated Date Inactivated Comments 02/07/2018 7:25 PM 02/09/2018 5:08 PM * Full Code Date Activated Date Inactivated Comments 01/17/2015 6:49 AM 01/18/2015 3:11 PM * Full Code Date Activated Date Inactivated Comments 12/10/2014 7:57 AM 12/10/2014 1:53 PM Care Teams Administrative Resident Relationship Specialty Start Date End Date Vicente Chavez MD [address] [facility] [address] [place] [address] PCP - General Family Practice 02/26/20
[2024-12-22 09:01] VITALS: BP 142/106; PULSE 65; RESP 18; TEMP 36.4; O2SAT 100
--- NOTE | 2024-12-22 09:14 | P.PNAN_ITS ---
Anes - Initial Pre Proc Eval Procedure: Operation Date: 12/22/24 10:00 Proposed Procedures p Screening Colonoscopy - Nelson La MD Date/Time: 12/22/24 09:14 Surgeon: Nelson La MD Pre Op Diagnosis: Screening Patient Data Age: 64 Gender: F Height: 1.7 m Weight: 101.5 kg Last Vital Signs Temp 36.4 C L 12/22/24 09:01 Pulse 65 12/22/24 09:01 Resp 18 12/22/24 09:01 BP 142/106 H 12/22/24 09:01 Pulse Ox 100 12/22/24 09:01 O2 Del Method Room Air 12/22/24 09:01 Allergies Allergy/AdvReac Type Severity Reaction Status Date / Time aspirin Allergy Unknown Ulcers Verified 12/22/24 08:58 NSAIDS (Non-Steroidal Allergy Unknown Ulcers Verified 12/22/24 08:58 Anti-Inflamma Home Medications ?Medication ?Instructions ?Recorded ?Confirmed ?Type lisinopril 10 mg tablet 5 mg (1/2 x 10 mg) PO DAILY #30 03/29/21 12/22/24 Rx tabs levothyroxine 125 mcg tablet 125 mcg PO DAILY #30 tabs 06/25/22 12/22/24 Rx primidone 50 mg tablet 50 mg PO BID #60 tabs 06/25/22 12/22/24 Rx atorvastatin 10 mg tablet (Lipitor) 10 mg PO DAILY #90 tabs 08/18/24 12/22/24 Rx zolpidem 10 mg tablet 10 mg PO .hs #90 tabs 12/02/24 12/11/24 Rx Patient hx anesthesia problems: none Family hx anesthesia problems: none Results Review: All pre-operative results and documents have been reviewed as part of the pre- operative evaluation. [facility] Past Medical History Medical History Tremor Vitamin D deficiency, unspecified Hypothyroidism Chronic insomnia HTN (hypertension) Surgical History Surgical History H/O gastric bypass Family History Family History Father Hypertension Family history of cardiovascular disease Family history of heart disease in male family member before age 55 Sibling Hypertension Family history of cardiovascular disease Family history of diabetes mellitus in first degree relative Family history of type 2 diabetes mellitus Patient's brother is , Onset Age: 55 Acute myocardial infarction, Onset Age: 55 Mother Family history of cardiovascular disease Patient's mother is , Onset Age: 81 Father Diabetes mellitus Hypertension Sibling Hypertension Family history of cardiovascular disease, Onset Age: 65 Mother Family history of cardiovascular disease Other Cerebrovascular accident Family history of arthritis Social History Social History Smoking status: Never smoker Second hand tobacco smoke exposure: No Alcohol intake: current Alcohol use details: social drinker Substance use: never Substance use type: does not use Living arrangements: with family Occupation/Education: retired Gender identity (if verbalized by the patient): Female Anes - Eval Final PreProcedure Day of Procedure 12/22/24 09:14 Patient weight: obese Heart: regular rate and rhythm Lungs: clear to auscultation Airway: Mallampati scale class II Neurological: alert and oriented Last oral intake: >/= 8 hours ASA classification: III Emergent: no Anesthetic plan: proceed Anesthesia type and monitoring: general GIVS and standard monitoring Results Review: All pre-operative results and documents have been reviewed as part of the pre- operative evaluation. Informed Consent: The patient's anesthetic plan and its attendant risks and benefits were discussed with the patient/family/POA. Questions were solicited and answers provided to the satisfaction of the patient/family/POA.
[2024-12-22] MEDS: LACTATED RINGERS 1,000 ML 150 ML IV CONT (09:16)
[2024-12-22] MEDS: ONDANSETRON INJ 4 MG/2 ML VIAL IV PUSH (09:26)
--- NOTE | 2024-12-22 09:48 | PM.HPGS ---
History of Present Illness History of Present Illness Consent: Risks, benefits, and alternatives have been discussed and questions answered. Patient agrees to proceed with procedure. Chief complaint: Screening Narrative: Jaelyn Colunga is a 64 year old female here for screening colonoscopy, last one 10 years ago Review of Systems Review of Systems: All systems reviewed & are unremarkable except as noted in HPI and below PMFSH Past Medical History Medical History (Updated 12/22/24 @ 09:48 by Nelson La MD) Colon cancer screening Tremor Vitamin D deficiency, unspecified Hypothyroidism Chronic insomnia HTN (hypertension) Surgical History Surgical History H/O gastric bypass Family History Family History Father Hypertension Family history of cardiovascular disease Family history of heart disease in male family member before age 55 Sibling Hypertension Family history of cardiovascular disease Family history of diabetes mellitus in first degree relative Family history of type 2 diabetes mellitus Patient's brother is , Onset Age: 55 Acute myocardial infarction, Onset Age: 55 Mother Family history of cardiovascular disease Patient's mother is , Onset Age: 81 Father Diabetes mellitus Hypertension Sibling Hypertension Family history of cardiovascular disease, Onset Age: 65 Mother Family history of cardiovascular disease Other Cerebrovascular accident Family history of arthritis Social History Social History Smoking status: Never smoker Second hand tobacco smoke exposure: No Alcohol intake: current Alcohol use details: social drinker Substance use: never Substance use type: does not use Living arrangements: with family Occupation/Education: retired Gender identity (if verbalized by the patient): Female Meds Home Medications and Allergies Home Medications ?Medication ?Instructions ?Recorded ?Confirmed ?Type lisinopril 10 mg tablet 5 mg (1/2 x 10 mg) PO DAILY #30 03/29/21 12/22/24 Rx tabs levothyroxine 125 mcg tablet 125 mcg PO DAILY #30 tabs 06/25/22 12/22/24 Rx primidone 50 mg tablet 50 mg PO BID #60 tabs 06/25/22 12/22/24 Rx atorvastatin 10 mg tablet (Lipitor) 10 mg PO DAILY #90 tabs 08/18/24 12/22/24 Rx zolpidem 10 mg tablet 10 mg PO .hs #90 tabs 12/02/24 12/11/24 Rx Allergies Allergy/AdvReac Type Severity Reaction Status Date / Time aspirin Allergy Unknown Ulcers Verified 12/22/24 08:58 NSAIDS (Non-Steroidal Allergy Unknown Ulcers Verified 12/22/24 08:58 Anti-Inflamma Vital Signs Vital Signs - 24 hr 12/22/24 09:01 Temperature 97.5 F L Pulse Rate 65 Respiratory Rate 18 Blood Pressure 142/106 H Pulse Oximetry 100 Oxygen Delivery Room Air Exam Const: General: comfortable and no acute distress HENMT: Face/Nose/Sinus: Normal nares present Eyes: General: appearance normal, both eyes and all related structures Neck: Neck: no JVD Resp: Auscultation: clear to auscultation bilaterally Cardio: Rate: regular rate Rhythm: regular rhythm GI: Inspection: non-distended GI Palp: Yes Soft to palpation Skin: General skin exam: normal color Neuro: General: gait normal Speech: normal speech Extrem: General: normal to inspection Psych: Mental Status: mental status grossly normal Assessment and Plan Assessment and plan (1) Colon cancer screening: Code(s): Z12.11 - Encounter for screening for malignant neoplasm of colon Status: Acute Assessment and Plan: colonoscopy
--- NOTE | 2024-12-22 10:08 | S_PTH ---
PATIENT: Jaelyn Colunga LOC: [facility] Quijano#:[id number] AGE/SX: 64/F ROOM: RE12/22/[address]: Nelson La MD : 1960 BED: DIS: 12/22/2024 SPEC #: [id number] RECD: 12/22/24 10:47 STATUS: DANIELLE REQ #: [id number] RUSTY: 12/22/24 10:[address]: Nelson La DEPT: [facility] Surgical RECD BY: Roxana Landry ENTERED: 12/22/24 10:47 SP TYPE: Surgical OTHR DR: Vicente Chavez MD Tissues: A - Colon Polypectomy Procedures: Hematoxylin and Eosin Stain Gross and Microscopic Level 4
[2024-12-22 10:10] VITALS: BP 111/68; PULSE 62; RESP 15; O2SAT 96
[2024-12-22 10:20] VITALS: BP 110/72; PULSE 60; RESP 18; O2SAT 99
[2024-12-22 10:30] VITALS: BP 121/77; PULSE 60; RESP 19; O2SAT 99
--- NOTE | 2024-12-22 10:44 | SUR.PHASEII ---
pt stated to have a headache and was given water and soda to help. Pt stated felt better after drinking but still hurt. Medication was offered to help with headache and patient refused. Patient stated ill take something when i get home. Physicians number was given to reach if she had any questions or concerns.
== END 2024-12-22 10:45 | disposition home or self-care (01) ==
PROVIDERS: PCP Family Medicine; Referring Provider Nurse Practitioner; Visit Provider Internal Medicine Gastroenterology
PROC: 0DJD8ZZ Inspection of Lower Intestinal Tract, Via Natural or Artificial Opening Endoscopic (ICD-10-PCS; CPT 45378; principal; 2024-12-22 10:00)
DX: Z12.11 Encounter for screening for malignant neoplasm of colon (principal); K63.5 Polyp of colon; K64.8 Other hemorrhoids; E66.9 Obesity, unspecified; Z68.35 Body mass index [BMI] 35.0-35.9, adult
CPT/HCPCS: 45385; 88305; J2003; J2405; J2704; J7120

== ENCOUNTER 2025-01-01 13:35 | Outpatient (CLI) | payer MEDICARE, OTHER, SELFPAY ==
--- NOTE | ~2025-01-01 | DEXA_ITS ---
Bone Density Report Name: RUFINO VARGAS Age: 64 Sex: Female Ethnicity: White Date of : 1960 Indication: postmenopausal; screening for osteoporosis; height loss; Referring Provider: KIZZY, VIOLETA Study: Bone densitometry was performed. Exam Date: January 01, 2025 Accession number: [id number] Bone Density: Region BMD T-score Z-score Classification AP Spine(L1-L4) 1.190 1.3 3.1 Normal Femoral Neck (Right) 0.732 -1.1 0.5 Osteopenia Total Hip (Right) 0.986 0.4 1.6 Normal World Health Organization criteria for BMD impression classify patients as: Normal (T-score at or above -1.0), Osteopenia (T-score between -1.0 and -2.5), or Osteoporosis (T-score at or below -2.5). 10-year Fracture Risk(1): Major Osteoporotic Fracture 7.4% Hip Fracture 0.5% Reported Risk Factors: [place] (), Neck BMD=0.732, BMI=36.3 (1) FRAX(R) Version 3.08. Fracture probability calculated for an untreated patient. Fracture probability may be lower if the patient has received treatment. Previous Exams: -- Region Exam Age BMD T-score BMD Change BMD Change Date g/cm2 vs Baseline vs Previous -- AP Spine (L1-L4) 01/01/2025 64 1.190 1.3 -7.0%# -3.5%# 08/23/2020 60 1.233 1.7 -3.6%* -2.4%# 05/09/2018 57 1.264 2.0 -1.2%# -1.2%# 04/01/2015 54 1.279 2.1 Total Hip(Right) 01/01/2025 64 0.986 0.4 -11.3%# 0.5%# 08/23/2020 60 0.982 0.3 -11.7%* -6.3%# 05/09/2018 57 1.048 0.9 -5.8%# -5.8%# 04/01/2015 54 1.112 1.4 -- *Denotes significance at 95% confidence level, LSC for AP Spine = 0.022 g/cm2, LSC for Total Hip = 0.027 g/cm2 # Denotes dissimilar scan types or analysis methods Clinical Information Provided by Patient: Patient maximum height was 68 Menopause Age: 52 Drinks caffeinated beverages Onset of menses at age 11 Number of children 4 Impression: The patient has low bone mass, based on the Right Femoral Neck T-score. The patient has an estimated ten-year risk of hip fracture of 0.5% and an estimated ten-year risk of major fracture of 7.4%, based on the WHO FRAX algorithm. Unable to evaluate interval change due to the use of different scan modes. Discussion: BONE DENSITY IS LOW AT ONE OR MORE SKELETAL SITES. This patient's lowest T-score is low at one or more skeletal sites. It meets the World Health Organization's (WHO) criteria for ?low bone mass? (T-score between -1.0 and -2.5). The patient's 10-year risk of fracture as calculated by FRAX is less than the threshold where pharmacological therapy is recommended by the National Osteoporosis Foundation (NOF). However, all treatment decisions require clinical judgment and consideration of individual patient factors, including patient preferences, comorbidities, previous drug use, risk factors not captured in the FRAX model (e.g., frailty, falls, vitamin D deficiency, increased bone turnover, interval significant decline in bone density) and possible under or overestimation of fracture risk by FRAX. The patient should follow a healthful lifestyle (good nutrition with adequate calcium and vitamin D, and appropriate weight-bearing exercise). Follow-Up: Consider repeating this study in 2 to 3 years to reassess this patient's status, or sooner if there is some new clinical indication. Reported by: YONI on 01/04/2025 2:08:00 PM. Reviewed, dictated and finalized at location A.
== END 2025-01-01 13:36 | disposition home or self-care (01) ==
LOC: MICIMG 13:36
PROVIDERS: PCP Family Medicine; Visit Provider Nurse Practitioner
DX: M85.851 Other specified disorders of bone density and structure, right thigh (principal); Z78.0 Asymptomatic menopausal state
CPT/HCPCS: 77080

== ENCOUNTER 2025-03-10 10:30 | Outpatient (CLI) | payer MEDICARE, OTHER, SELFPAY ==
--- NOTE | ~2025-03-10 | MR_ITS ---
EXAMINATION: MR lumbar spine wo con DATE: 03/10/2025 11:58 INDICATION: Abnormal findings on diagnostic imaging TECHNIQUE: Magnetic resonance imaging (MRI) of the lumbar spine was performed without intravenous contrast. Sequences included sagittal T2-weighted FSE, sagittal T2-weighted FS FSE, sagittal T1-weighted FSE, and axial T2-weighted FSE. COMPARISON: None FINDINGS: Alignment is normal. There is marrow edema extending across the L1 vertebral body surrounding a subtle linear low signal intensity compression fracture line extending obliquely across the vertebral body with minimal depression of the superior endplate. Remaining vertebral body heights are normal. T1 hyperintense hemangioma at L5. Marrow signal is otherwise normal. Mild disc height loss at L2-L3 and mild to moderate disc height loss at L3-L4 and L4-L5. There are annular fissures at L3-L4 and L4-L5. The conus medullaris terminates at T12. There is normal signal in the caudal spinal cord. 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 Paravertebral soft tissues are unremarkable. The following disc levels are specifically discussed: T12-L1: Disc is minimally bulging. There is moderate bilateral facet joint osteoarthritis. There is no neural foraminal stenosis. There is normal central canal stenosis. L1-L2: The disc does not extend beyond the endplate margin. There is moderate bilateral facet joint osteoarthritis. There is mild left neural foraminal stenosis. There is no central canal stenosis. L2-L3: Disc is mildly bulging. There is moderate bilateral facet joint osteoarthritis. There is mild bilateral neural foraminal stenosis. There is mild central canal stenosis. L3-L4: Moderate disc bulge. There is moderate left and moderate to severe right facet joint osteoarthritis. There is mild to moderate bilateral neural foraminal stenosis. There is mild central canal stenosis. L4-L5: Disc is bulging. There is moderate left and moderate to severe right facet joint osteoarthritis. There is moderate right and mild left neural foraminal stenosis. There is mild central canal stenosis. L5-S1: The disc does not extend beyond the endplate margin. There is moderate to severe left and severe right facet joint osteoarthritis. There is mild bilateral neural foraminal stenosis. There is no central canal stenosis. IMPRESSION: 1. Relatively recent mild L1 compression fracture with <10% central vertebral body height loss. 2. Mild to moderate lower lumbar predominant spondylosis. Reviewed, dictated and finalized at location A. IMPRESSION: 1. Relatively recent mild L1 compression fracture with <10% central vertebral b koko height loss. 2. Mild to moderate lower lumbar predominant spondylosis.
--- OUTSIDE RECORDS SUMMARY | 2025-03-10 11:04 | XMS_ITS | Clinical Summary ---
Author Organization [facility] Address [address] [place] [address] Phone Care Team Providers Care Manager Gyn Name Role Phone Vicente Chavez MD Primary [...] Take by mouth. Active VIT B COMP NO.3-TJIMB-Y-BI OTIN ORAL Take by mouth. Active lisinopriL (PRINIVIL) 5 mg tablet TAKE 1 TABLET BY MOUTH EVERY DAY 90 Tablet 3 10/19/2024 Active atorvastatin (LIPITOR) 10 mg tablet Take 1 Tablet by mouth daily. 08/19/2024 Active Active Problems Patient Care Coordination No te Formatting of this note migh t be different from the original. 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 Gender Identity Not on file Sexual Orientation [...] Description 11/08/2025 9:30 AM CDT Office Visit [facility] [address] [place] [address] Alexi Burch MD [address] [facility] [facility] [address] [place] [address] Health Maintenance Due Date Last [...] - Risk 60-74 years 1-dose series) 2019 OSTEOPOROSIS SCREENING 2024 COLORECTAL SCREENING 12/10/2024 12/10/2014 Colorectal Cancer Screening 12/10/2024 INFLUENZA VACCINE (#1) 2025 Pre-Diabetes and Diabetes Screening 05/07/202505/07 Medical Devices Implanted Type Area Short Order Cook Device Identifier Shelf Expiration Date Model / Serial / Lot Metal Plate 5th Metacarpal Right Hand Nhan Bio 60 [id number] - [id number] Implanted:Qty: 2 on 01/17/2015 by Drew Moon MD at [facility] N/A: Stomach [employer] 09/11/2017 [id number] / / [id number] Explanted Type Area Short Order Cook Device Identifier Shelf Expiration Date Model / Serial / Lot Tube Carlson Jejunostomy 16fr Ltx [id number] - [id number] Explanted:Qty: 1 on 01/17/2015 at [facility] Feeding Device CR BARD- MED DIV [id number] / / Description:RN'S PUT IN ON S UPPLIES SIDE Procedures Procedure Name Priority Date/Time Associated Diagnosis Comments HEMOGLOBIN A1C Routine 05/07/2022 10:05 AM CDT Dizziness from Last 3 Months or Most Recently Relevant to Health Maintenance Results * (ABNORMAL) HEMOGLOBIN A1C (05/07/2022 10:05 AM CDT) HEMOGLOBIN A1C 5.8(H) <5.7 % of total Hgb [employer] [facility] Comment: For someone without known diabetes, [...] ESTIMATED AVERAGE GLUCOSE (MG/DL) 120 mg/dL [facility] ESTIMATED AVERAGE GLUCOSE (MMOL/L) 6.6 mmol/L [facility] Comment: Test Performed at: [facility] [address] [place] [address] Edwardo Valderrama D.O., MPH Blood 05/07/2022 10:0 5 AM CDT 05/08/2022 4:19 AM CDT Viki Shin DNP CHEMISTRY ORDERABLES Final Result [facility] [phone] [facility] [address] [phone] from Last 3 Months or Most Recently Relevant to Health Maintenance Insurance [facility] MEDICARE PART A AND B [employer] Advance Directives For more information, please contact: [phone] * Full Code (Latest Code Status on File) Date Activated Date Inactivated Comments 02/07/2018 7:25 PM 02/09/2018 5:08 PM * Full Code Date Activated Date Inactivated Comments 01/17/2015 6:49 AM 01/18/2015 3:11 PM * Full Code Date Activated Date Inactivated Comments 12/10/2014 7:57 AM 12/10/2014 1:53 PM Care Teams Manager Gyn Relationship Specialty Start Date End Date Vicente Chavez MD [address] [place] [phone] PCP - General Family Practice 02/26/20
--- OUTSIDE RECORDS SUMMARY | 2025-03-10 11:04 | XMS_ITS | Clinical Summary ---
Author Organization [facility] Address [address] [place] [address] Care Team Providers Care Extrusion Technician Name Role Phone Unavailable Primary Care Provider Unavailabl e Source Comments [facility],non-owned Affiliates and Associated Physician Practices is amultiple site organization consisting of ambulatory clinics and hospital sitesin [place], [place], [place] and [place]. This disclosure is being madepursuant to the Care Everywhere program and may not contain all information available regarding this patient. Last updated 18.[facility] Medications * Be aware that medications may not be up to date on this document. Alwaysverify current medications with the patient. zolpidem (AMBIEN) 10 MG tablet 7 Active levothyroxine (SYNTHROID) 125 MCG tablet 7 Active HYDROcodone-elen taminophen (NORCO) 5-325 MG tablet Take 1 tablet by mouth q8h PRN (Pain). 30 tablet 0 7 Active traMADol (ULTRAM) 50 MG tablet 0 7 Active Diclofenac Sodium 3 % CREA 1 Units by Apply externally route BID. 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 Gender Identity Not on file Sexual Orientation Not on file Plan of Treatment Health Maintenance Due Date Last Done Comments BONE DENSITY TESTING 1960 COLOGUARD (AGES 45-75) - COL ON CA SCREENING 1960 COLON MONITORING 1960 COLONOSCOPY - COLON CA SCREENING 1959 CT COLONOGRAPHY - COLON CA SCREENING 1960 Colorectal Cancer Screening 1960 FIT - COLON CA SCREENING 1960 FLEX SIG - COLON CA SCREENING 1960 LIPID TESTING 1960 MAMMOGRAM 1960 MEDICARE AWV 12 MONTHS 1960 HIV SCREENING 1974 HEPATITIS C SCREENING 07/21/1977 DTAP/TDAP/TD VACCINES (1 - Tdap) 1978 PAP SMEAR 1980 PNEUMOCOCCAL VACCINE 50+ (1 of 1 - PCV) 2009 ZOSTER VACCINE (1 of 2) 2009 COVID-19 VACCINE (1 - 2023-2 5 season) 2024 DEPRESSION SCREENING 07/15/2024 INFLUENZA VACCINE (#1) 2025 Respiratory Syncytial Virus (RSV) Vaccine Pt: or over 60 yrs (1 - 1-dose 75+ series) 2034 HEPATITIS B VACCINE Aged Out No longe r eligible based on patient's age to complete this topic HIB VACCINE Aged Out No longer eligi ble based on patient's age to complete this topic HPV VACCINE Aged Out No longer eligi ble based on patient's age to complete this topic MENINGOCOCCAL (Group B) VACC INE SHARED DECISION-MAKING Aged Out No longer eligibl e based on patient's age to complete this topic MENINGOCOCCAL GROUPS A/C/Y/W VACCINE Aged Out No longer eligible b ased on patient's age to complete this topic Insurance MEDICARE SELF PAY NO INSURANCE Member Subscriber Plan / Payer (Ef fective for All Dates) Name:Jaelyn Colunga Member ID:Not on file Relation to Subscriber:Not on file Name:JAELYN COLUNGA Subscriber ID:Not on file (Home) Address: [address] [place] [address] Payer ID:Not on file Group ID:Not on file Type:Self Pay Address: [place], [place]
--- OUTSIDE RECORDS SUMMARY | 2025-03-10 11:04 | XMS_ITS | Clinical Summary ---
Author Organization [facility] Address [facility] [place] [address] Care Team Providers Care Hvac Service Technician Name Role Phone Vicente Chavez MD Primary Care Provider Allergies Active Allergy Reactions Criticality Noted Date Comments Hydromorphone Itching Low 07/16/2018 Can tolerate with benadryl Nsaids (Non-Steroidal Anti-Inflammatory Drug) Other (See comments) Low 07/02/2018 Pt has gastric bypass Medications zolpidem (AMBIEN) 10 mg tabletIndications: Sleep-Onset Insomnia Take 1 tablet (10 mg total) by mouth nightly Active calcium citrate-vitamin D3 (CITRACAL WITH D) 315-250 mg-unit per tabletIndications: Hypocalcemia Prevention,Vitamin D Deficiency Take 1 tablet by mouth nightly Active multivitamin capsuleIndications :Vitamin Deficiency Prevention Take 1 capsule by mouth nightly Active acetaminophen (TYLENOL) 325 mg tablet Take 2 tablets (650 mg total) by mouth every 6 (six) hours as needed for pain Active lisinopriL (PRINIVIL,ZESTRIL) 5 mg tabletIndications: hypertension Take 1 tablet (5 mg total) by mouth every morning Active cyanocobalamin, vitamin B-12, (VITAMIN B-12 ORAL)Indications:s upplement Take 1 tablet by mouth nightly Active BIOTIN ORALIndications:yuan pplement Take 1 tablet by mouth nightly Active levothyroxine (SYNTHROID) 125 mcg tabletIndications: hypothyroidism Take 1 tablet (125 mcg total) by mouth 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 3 Active primidone (MYSOLINE) 50 mg tablet TAKE 1 TABLET(50 MG) BY MOUTH TWICE DAILY 60 tablet 3 5 Active ondansetron ODT (ZOFRAN-ODT) 4 mg disintegrating tablet Take 1 tablet (4 mg total) by mouth every 8 (eight) hours as needed for nausea 20 tablet 5 Active HYDROcodone-acetam inophen (NORCO) 7.5-325 mg per tabletIndications: Pain Take 1 tablet by mouth every 6 (six) hours as needed for pain for up to 20 doses 20 tablet 5 Active methocarbamoL (ROBAXIN) 500 mg tablet Take 1 tablet (500 mg total) by mouth 2 (two) times a day 20 tablet 5 Active lidocaine (LIDODERM) 5 % Place 1 patch on the skin daily for 12 hours for 14 days Remove & discard patch within 12 hours or as directed by MD. 14 patch 5 03/18/20 25 Active Active Problems Problem Noted Date Diagnosed Date Trigger ring finger of right hand 09/22/2023 Mild aortic stenosis 08/07/2022 Chest tightness 12/22/2021 Tear of right rotator cuff 06/20/2021 Overview (06/20/2021): Added automatically from request for surgery [id number] Biceps tendinitis of right upper extremity 06/20 Overview (06/20/2021): Added automatically from request for surgery [id number] Symptomatic PVCs 11/18/2020 Mild mitral regurgitation 05/13/2020 Orthostatic hypotension 05/13/2020 Paroxysmal atrial tachycardia 05/13/2020 Tremor 03/15/2020 Trigger middle finger of left hand 06/16/2019 Overview (06/16/2019): Added automatically from request for surgery [id number] Ganglion cyst of finger 06/16/2019 Overview (06/16/2019): Added automatically from request for surgery [id number] Subclinical iodine-deficiency hypothyroidism Trochanteric bursitis of left hip 07/30/2018 Overview (07/30/2018): Added automatically from request for surgery [id number] Trigger middle finger of right hand 06/19/2018 Overview (06/19/2018): Added automatically from request for surgery [id number] Fall from horse 02/08/2018 Closed nondisplaced fracture [...] upper 1.0 cm Vitamin D deficiency 11/08/2010 Encounters Date Type Department Care Team Description 03/04/2025 12:38 PM CDT - 03/04/2025 3:41 PM CDT Emergency [facility] Emergency Department [address] [place] [address] Fall, initial encounter (Primary Dx) Discharge Disposition: Discharge to home or self care from Last 3 Months Surgical History Surgery Date Site/Laterality Comments GASTRIC BYPASS 07/15/2014 - 07/14/2015 has lost 140lbs total [place] CHOLECYSTECTOMY 07/15/2002 - 07/14/2003 INCISIONAL HERNIA REPAIR [...] disease Brother 2 Alok Hypertension Brother 2 [place] Hypertension Brother 3 Family history of hypertension [...] making you feel afraid or unsafe? 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 Gender Identity Not on file Sexual Orientation Not on file Occupation Industry Job Start Date Job End Date Not Employed Not on file Not on file Not on file Obstetrics History Last Filed Vital Signs Vital Sign Reading Time Taken Comments Blood Pressure 123/72 03/04/2025 3:15 PM CDT Pulse 58 03/04/2025 3:15 PM CDT Temperature 36.2 C (97.2 F) 03/04/2025 12:37 PM CDT Respiratory Rate 13 03/04/2025 3:15 PM CDT Oxygen Saturation 99% 03/04/2025 3:15 PM CDT Inhaled Oxygen Concentration - - Weight 101.6 kg (224 lb) 03/04/2025 12:37 PM CDT Height 170.2 cm (5' 7) 03/04/2025 12:37 PM CDT Body Mass Index 35.08 03/04/2025 12:37 PM CDT Plan of Treatment Health Maintenance Due Date [...] Fall Risk Assessment 10/08/2024 10/09/2023 Influenza Vaccine (#1) 2025 04/25/2020 Medical Devices Implanted Type Area Principal Java Developer Device Identifier Shelf Expiration Date Model / Serial / Lot Plate Right: Hand [employer] [id number] Swivelock Tigerwire Arthrex 4.75mm 22mm 2 Load 2 Tip Retention - S0 - [id number] Implanted:Qty: 4 on 09/04/2018 by Letitia Diaz MD at [facility] [employer] 05/14/2020 [id number] / 0 / [id number] [employer] Ar-3670 Set Implant Arthrex Fibertak Biceps Sterile Latex Free - [id number] Implanted:Qty: 1 on 08/17/2021 by Saurabh Grover MD at [facility] Right: Shoulder [employer] 05/14/2026 AR-[id number] / / [id number] Procedures Procedure Name Priority Date/Time Associated Diagnosis Comments XR RADIUS ULNA RIGHT 2 VIEWS ED 03/04/2025 1:[address] PELVIS WO CONTRAST ED 03/04/2025 1:[address] LUMBAR SPINE WO CONTRAST ED 03/04/2025 1:[address] THORACIC SPINE WO CONTRAST ED 03/04/2025 1:[address] CERVICAL SPINE WO CONTRAST ED 03/04/2025 1:[address] HEAD WO CONTRAST ED 03/04/2025 1 :31 PM CDT EGFR STAT 03/04/2025 1:02 PM CDT DIFFERENTIAL AUTO STAT 03/04/2025 1:0 2 PM CDT ANTIBODY SCREEN STAT 03/04/2025 1:02 PM CDT ABO/RH STAT 03/04/2025 1:02 PM CDT TYPE AND SCREEN STAT 03/04/2025 1:02 PM CDT COMPREHENSIVE METABOLIC PANEL STAT 03/04/2025 1:02 PM CDT CBC WITH AUTO DIFFERENTIAL STAT 03/04/2025 1:02 PM CDT from Last 3 Months Results * XR Radius Ulna Right 2 Views (03/04/2025 1:46 PM CDT) Anatomical Region Laterality Modality Upper Extremities, Forearm Right Compu izabella Radiography 03/04/2025 2:23 PM CDT Narrative 03/04/2025 2:24 PM CDT EXAM DESCRIPTION: XR RADIUS ULNA RIGHT 2 VIEWS REASON FOR STUDY: pain c/o falling off of a horse today. TECHNIQUE: Two views COMPARISON: None available FINDINGS: No acute fracture or dislocation. No lytic or destructive process. Irpb-jm-thpkhian degenerative changes wrist and elbow. Soft tissues unremarkable. IMPRESSION: Degenerative changes without acute findings right forearm. THIS IS AN ELECTRONICALLY VERIFIED FINAL REPORT 03/04/2025 2:24 PM - Electronically signed by Frederick Ruiz M.D. RB: RB Report ID: [id number] Reading Location: [id number] Procedure Note Frederick Ruiz MD - 03/04/2025 EXAM DESCRIPTION: XR RADIUS ULNA RIGHT 2 VIEWS REASON FOR STUDY: pain c/o falling off of a horse today. TECHNIQUE: Two views COMPARISON: None available FINDINGS: No acute fracture or dislocation. No lytic or destructive process. Rbkj-in-kyrfxyow degenerative changes wrist and elbow. Soft tissues unremarkable. IMPRESSION: Degenerative changes without acute findings right forearm. THIS IS AN ELECTRONICALLY VERIFIED FINAL REPORT 03/04/2025 2:24 PM - Electronically signed by Frederick Ruiz M.D. RB: RB Report ID: [id number] Reading Location: [id number] Niki Hidalgo DARYL IMG XR PROCEDURES Final Result * CT Pelvis WO Contrast (03/04/2025 1:31 PM CDT) Anatomical Region Laterality Modality Body N/A Computed Tomogra phy 03/04/2025 2:24 PM CDT Narrative 03/04/2025 2:28 PM CDT EXAM DESCRIPTION: CT PELVIS WO CONTRAST REASON FOR STUDY: Hip trauma, fracture suspected, no prior imaging Fell off horse today, has lower back and right hip pain, dizziness, denies hitting head TECHNIQUE: CT scan of the pelvis performed without intravenous and without oral contrast using helical scanning technique. Reconstructed coronal and sagittal MPR images reviewed. All images stored on PACS. Automated exposure control was used as a dose optimization technique for this examination. COMPARISON: 04/09/2019 FINDINGS: The sensitivity for detection of solid visceral lesions is diminished without the use of intravenous contrast. URINARY: No visualized abnormality. GI: Not fully included in field of view. No visualized abnormality. PERITONEUM: Not fully included in field of view. No visualized abnormality. RETROPERITONEUM: Not fully included in field of view. No visualized abnormality. REPRODUCTIVE: 2.6 cm hypodensity right pelvic adnexa suggesting ovarian cysts. Similar left-sided 1.6 cm lesion VASCULATURE: Abdominal aorta not fully included in field of view. No visualized abnormality. MUSCULOSKELETAL: No significant abnormality. OTHER: No other abnormality. IMPRESSION: 1. No acute finding. 2. Bilateral ovarian cysts. THIS IS AN ELECTRONICALLY VERIFIED FINAL REPORT 03/04/2025 2:28 PM - Electronically signed by Frederick Ruiz M.D. RB: JULIO CESAR Report ID: [id number] Reading Location: [id number] Procedure Note Frederick Ruiz MD - 03/04/2025 EXAM DESCRIPTION: CT PELVIS WO CONTRAST REASON FOR STUDY: Hip trauma, fracture suspected, no prior imaging Fell off horse today, has lower back and right hip pain, dizziness, denies hitting head TECHNIQUE: CT scan of the pelvis performed without intravenous and without oral contrast using helical scanning technique. Reconstructedcoronal and sagittal MPR images reviewed. All images stored on PACS. Automated exposure control was used as a dose optimization technique for this examination. COMPARISON: 04/09/2019 FINDINGS: The sensitivity for detection of solid visceral lesions is diminishedwithout the use of intravenous contrast. URINARY: No visualized abnormality. GI: Not fully included in field of view. No visualized abnormality. PERITONEUM: Not fully included in field of view. No visualizedabnormality. RETROPERITONEUM: Not fully included in field of view. No visualized abnormality. REPRODUCTIVE: 2.6 cm hypodensity right pelvic adnexa suggesting ovarian cysts. Similar left-sided 1.6 cm lesion VASCULATURE: Abdominal aorta not fully included in field of view. No visualized abnormality. MUSCULOSKELETAL: No significant abnormality. OTHER: No other abnormality. IMPRESSION: 1. No acute finding. 2. Bilateral ovarian cysts. THIS IS AN ELECTRONICALLY VERIFIED FINAL REPORT 03/04/2025 2:28 PM - Electronically signed by Frederick Ruiz M.D. RB: JULIO CESAR Report ID: [id number] Reading Location: [id number] Adonis Fox MD IM CT PROCEDURES F inal Result * CT Lumbar Spine WO Contrast (03/04/2025 1:31 PM CDT) Anatomical Region Laterality Modality Spine N/A Computed Tomogra phy 03/04/2025 2:42 PM CDT Narrative 03/04/2025 2:49 PM CDT EXAM DESCRIPTION: CT LUMBAR SPINE WO CONTRAST REASON FOR STUDY: Back trauma, no prior imaging (Age >= 16y) Fell off horse today, has lower back and right hip pain, dizziness, denies hitting head TECHNIQUE: Axial images acquired through the lumbar spine without intravenous contrast. Reconstructed coronal and sagittal MPR images reviewed. All images stored on PACS. Automated exposure control was used as a dose optimization technique for this examination. COMPARISON: CT thoracic spine from today. FINDINGS: SEGMENTATION: No transitional anatomy. The lowest well-developed disc space is labeled L5-S1. ALIGNMENT: Normal. VERTEBRAE: There is a suggestion of slight loss of height along the superior endplate of L1. Slight widening of the anterior T12-L1 disc space could be due to the superior vertebral height loss. Findings could indicate a subtle recent or acute fracture. MRI correlation however is recommended. Lumbar vertebral height otherwise is normal. DISC HEIGHT: Disc degeneration with narrowing most evident at L3-4, L4-5 levels. Bilateral foraminal narrowing at L2-3 L3-4 L4-5 levels due to endplate osteophytic spurs. HARDWARE: None in the spine. INDIVIDUAL DISC LEVELS: Disc space narrowing and endplate spurring at L3-4 L4-5. VISUALIZED RIBS: No definite acute osseous abnormality of the included lower ribs. SOFT TISSUES: No significant or acute finding in adjacent soft tissues. OTHER: No other significant finding. IMPRESSION: 1. Slight loss of height along the superior endplate of L1 with slight widening of the anterior T12-L1 disc space. Findings could indicate a subtle acute fracture. MRI correlation is recommended. 2. Multilevel disc degeneration with endplate spurring and foraminal narrowing at L2-3, L3-4 and L4-5 levels. THIS IS AN ELECTRONICALLY VERIFIED FINAL REPORT 03/04/2025 2:49 PM - Electronically signed by Janet Hernandez M.D. LC: JV Report ID: [id number] Reading Location: [place] [address] Procedure Note Bea Hernandez MD - 03/04/2025 EXAM DESCRIPTION: CT LUMBAR SPINE WO CONTRAST REASON FOR STUDY: Back trauma, no prior imaging (Age >= 16y) Fell off horse today, has lower back and right hip pain, dizziness, denies hitting head TECHNIQUE: Axial images acquired through the lumbar spine withoutintravenous contrast. Reconstructed coronal and sagittal MPR images reviewed. Allimages stored on PACS. Automated exposure control was used as a dose optimization technique forthis examination. COMPARISON: CT thoracic spine from today. FINDINGS: SEGMENTATION: No transitional anatomy. The lowest well-developed discspace is labeled L5-S1. ALIGNMENT: Normal. VERTEBRAE: There is a suggestion of slight loss of height along thesuperior endplate of L1. Slight widening of the anterior T12-L1 disc space couldbe due to the superior vertebral height loss. Findings could indicate asubtle recent or acute fracture. MRI correlation however is recommended. Lumbar vertebral height otherwise is normal. DISC HEIGHT: Disc degeneration with narrowing most evident at L3-4, L4-5 levels. Bilateral foraminal narrowing at L2-3 L3-4 L4-5 levels due to endplate osteophytic spurs. HARDWARE: None in the spine. INDIVIDUAL DISC LEVELS: Disc space narrowing and endplate spurring atL3-4 L4-5. VISUALIZED RIBS: No definite acute osseous abnormality of the includedlower ribs. SOFT TISSUES: No significant or acute finding in adjacent soft tissues. OTHER: No other significant finding. IMPRESSION: 1. Slight loss of height along the superior endplate of L1 with slight widening of the anterior T12-L1 disc space. Findings could indicate asubtle acute fracture. MRI correlation is recommended. 2. Multilevel disc degeneration with endplate spurring and foraminal narrowing at L2-3, L3-4 and L4-5 levels. THIS IS AN ELECTRONICALLY VERIFIED FINAL REPORT 03/04/2025 2:49 PM - Electronically signed by Janet Hernandez M.D. LC: JV Report ID: [id number] Reading Location: [id number] Adonis Fox MD IMG CT PROCEDURES F inal Result * CT Thoracic Spine WO Contrast (03/04/2025 1:31 PM CDT) Anatomical Region Laterality Modality Spine N/A Computed Tomogra phy 03/04/2025 2:26 PM CDT Narrative 03/04/2025 2:42 PM CDT EXAM DESCRIPTION: CT THORACIC SPINE WO CONTRAST REASON FOR STUDY: Back trauma, no prior imaging (Age >= 16y) Fell off horse today, has lower back and right hip pain, dizziness, denies hitting head TECHNIQUE: Axial images acquired through the thoracic spine without intravenous contrast. Images reviewed with lung, soft tissue and bone windows. Reconstructed coronal and sagittal MPR images reviewed. Images stored on PACS. Automated exposure control was used as a dose optimization technique for this examination. COMPARISON: No comparison. FINDINGS: ALIGNMENT: Normal. VERTEBRAE: Thoracic vertebral height appears maintained. Possible slight loss of height along the superior endplate of L1. Please refer to CT lumbar spine report separately dictated. DISC HEIGHT: There is bridging anterior osteophytic spurring extending roughly from T7 through T12 in keeping with likely DISH. There is slight widening of the disc space at T12-L1. HARDWARE: None in the spine. THORACIC DISCS T1-T12: No compressive osseous spinal stenosis. SOFT TISSUES: No soft tissue masses. LOWER CERVICAL: Incompletely imaged. No significant osseous spinal stenosis or osseous foraminal stenosis. UPPER LUMBAR: Possible slight loss of height along the superior endplate of L1. OTHER: No other significant abnormality. IMPRESSION: 1. No acute osseous abnormality of the thoracic spine. 2. Possible slight loss of height along the superior endplate of L1. 3. Bridging anterior osteophytic spurring in keeping with DISH. THIS IS AN ELECTRONICALLY VERIFIED FINAL REPORT 03/04/2025 2:42 PM - Electronically signed by Janet Hernandez M.D. LC: JV Report ID: [id number] Reading Location: [id number] Procedure Note Bea Hernandez MD - 03/04/2025 EXAM DESCRIPTION: CT THORACIC SPINE WO CONTRAST REASON FOR STUDY: Back trauma, no prior imaging (Age >= 16y) Fell off horse today, has lower back and right hip pain, dizziness, denies hitting head TECHNIQUE: Axial images acquired through the thoracic spine without intravenous contrast. Images reviewed with lung, soft tissue and bone windows. Reconstructed coronal and sagittal MPR images reviewed. Images stored on PACS. Automated exposure control was used as a dose optimization technique for this examination. COMPARISON: No comparison. FINDINGS: ALIGNMENT: Normal. VERTEBRAE: Thoracic vertebral height appears maintained. Possibleslight loss of height along the superior endplate of L1. Please refer to CTlumbar spine report separately dictated. DISC HEIGHT: There is bridging anterior osteophytic spurring extending roughly from T7 through T12 in keeping with likely DISH. There is slight widening of the disc space at T12-L1. HARDWARE: None in the spine. THORACIC DISCS T1-T12: No compressive osseous spinal stenosis. SOFT TISSUES: No soft tissue masses. LOWER CERVICAL: Incompletely imaged. No significant osseous spinalstenosis or osseous foraminal stenosis. UPPER LUMBAR: Possible slight loss of height along the superior endplateof L1. OTHER: No other significant abnormality. IMPRESSION: 1. No acute osseous abnormality of the thoracic spine. 2. Possible slight loss of height along the superior endplate of L1. 3. Bridging anterior osteophytic spurring in keeping with DISH. THIS IS AN ELECTRONICALLY VERIFIED FINAL REPORT 03/04/2025 2:42 PM - Electronically signed by Janet Hernandez M.D. LC: JV Report ID: [id number] Reading Location: [place] [address] [place] Adonis Fox MD IMG CT PROCEDURES F inal Result * CT Cervical Spine WO Contrast (03/04/2025 1:31 PM CDT) Anatomical Region Laterality Modality Spine N/A Computed Tomogra phy 03/04/2025 2:19 PM CDT Narrative 03/04/2025 2:23 PM CDT EXAM DESCRIPTION: CT CERVICAL SPINE WO CONTRAST REASON FOR STUDY: Neck trauma (Age >= 65y) Fell off horse today, has lower back and right hip pain, dizziness, denies hitting head TECHNIQUE: Axial images through the cervical spine with sagittal and coronal reformatted images. Automated exposure control was used as a dose optimization technique for this examination. COMPARISON: None available FINDINGS: ALIGNMENT: Normal. VERTEBRAE: No fracture. Vertebral body heights well-maintained. DISCS: Diffuse narrowing HARDWARE: None in the spine. INDIVIDUAL DISC LEVELS: No significant osseous spinal canal stenosis. Right-sided neural foramina demonstrate bony compromise C3-4, C5-6 and C7-T1 primarily. Left-sided neural foramina demonstrate bony compromise C4-5, C5-6 primarily. UPPER THORACIC: Incompletely imaged. No significant osseous spinal stenosis or osseous neural foraminal stenosis. SKULL BASE: No significant finding. LUNG APICES: No significant abnormality. NECK SOFT TISSUES: No significant abnormality. OTHER: No other significant findings. IMPRESSION: 1. No acute C-spine abnormality. 2. Diffuse moderately severe degenerative changes. THIS IS AN ELECTRONICALLY VERIFIED FINAL REPORT 03/04/2025 2:23 PM - Electronically signed by Frederick Ruiz M.D. RB: RB Report ID: [id number] Reading Location: [place] [id number] Procedure Note Frederick Ruiz MD - 03/04/2025 EXAM DESCRIPTION: CT CERVICAL SPINE WO CONTRAST REASON FOR STUDY: Neck trauma (Age >= 65y) Fell off horse today, has lower back and right hip pain, dizziness, denies hitting head TECHNIQUE: Axial images through the cervical spine with sagittal andcoronal reformatted images. Automated exposure control was used as a doseoptimization technique for this examination. COMPARISON: None available FINDINGS: ALIGNMENT: Normal. VERTEBRAE: No fracture. Vertebral body heights well-maintained. DISCS: Diffuse narrowing HARDWARE: None in the spine. INDIVIDUAL DISC LEVELS: No significant osseous spinal canal stenosis. Right-sided neural foramina demonstrate bony compromise C3-4, C5-6 andC7-T1 primarily. Left-sided neural foramina demonstrate bony compromise C4-5, C5-6primarily. UPPER THORACIC: Incompletely imaged. No significant osseous spinalstenosis or osseous neural foraminal stenosis. SKULL BASE: No significant finding. LUNG APICES: No significant abnormality. NECK SOFT TISSUES: No significant abnormality. OTHER: No other significant findings. IMPRESSION: 1. No acute C-spine abnormality. 2. Diffuse moderately severe degenerative changes. THIS IS AN ELECTRONICALLY VERIFIED FINAL REPORT 03/04/2025 2:23 PM - Electronically signed by Frederick Ruiz M.D. RB: RB Report ID: [id number] Reading Location: [place] [address] Adonis Fox MD IMG CT PROCEDURES F inal Result * CT Head WO Contrast (03/04/2025 1:31 PM CDT) Anatomical Region Laterality Modality Head and Neck N/A Computed Tomogra phy 03/04/2025 2:17 PM CDT Narrative 03/04/2025 2:26 PM CDT EXAM DESCRIPTION: CT HEAD WO CONTRAST REASON FOR STUDY: Head trauma, minor (Age >= 65y) Fell off horse today, has lower back and right hip pain, dizziness, denies hitting head TECHNIQUE: Axial images acquired through the brain without intravenous contrast. Images stored on PACS. Automated exposure control was used as a dose optimization technique for this examination. COMPARISON: Brain MRI comparison 04/04/2020. FINDINGS: BRAIN: No acute hemorrhage, edema or mass effect. No recent infarct. Patchy low density of white matter throughout periventricular and subcortical regions in keeping with probable microvascular change somewhat limited evaluation of posterior fossa structures related to extensive dental holiness artifact. Within limitation, no mass effect or focal abnormality. EXTRA-AXIAL SPACES: No fluid collections. No masses. CALVARIUM: No fracture. SINUSES/MASTOIDS: No fluid or mucosal thickening. ORBITS: No significant abnormality. OTHER: No other significant abnormality. IMPRESSION: No acute intracranial findings. Please note somewhat limited evaluation of posterior fossa structures due to significant artifact due to dental holiness and beam hardening. THIS IS AN ELECTRONICALLY VERIFIED FINAL REPORT 03/04/2025 2:26 PM - Electronically signed by Janet Hernandez M.D. LC: JV Report ID: [id number] Reading Location: [id number] Procedure Note Bea Hernandez MD - 03/04/2025 EXAM DESCRIPTION: CT HEAD WO CONTRAST REASON FOR STUDY: Head trauma, minor (Age >= 65y) Fell off horse today, has lower back and right hip pain, dizziness, denies hitting head TECHNIQUE: Axial images acquired through the brain without intravenous contrast. Images stored on PACS. Automated exposure control was used asa dose optimization technique for this examination. COMPARISON: Brain MRI comparison 04/04/2020. FINDINGS: BRAIN: No acute hemorrhage, edema or mass effect. No recent infarct. Patchy low density of white matter throughout periventricular andsubcortical regions in keeping with probable microvascular change somewhat limited evaluation of posterior fossa structures related to extensive dental holiness artifact. Within limitation, no mass effect or focalabnormality. EXTRA-AXIAL SPACES: No fluid collections. No masses. CALVARIUM: No fracture. SINUSES/MASTOIDS: No fluid or mucosal thickening. ORBITS: No significant abnormality. OTHER: No other significant abnormality. IMPRESSION: No acute intracranial findings. Please note somewhat limited evaluationof posterior fossa structures due to significant artifact due to dental holiness and beam hardening. THIS IS AN ELECTRONICALLY VERIFIED FINAL REPORT 03/04/2025 2:26 PM - Electronically signed by Janet Hernandez M.D. LC: JV Report ID: [id number] Reading Location: [place] [address] Adonis Fox MD IMG CT PROCEDURES F inal Result * eGFR (03/04/2025 1:02 PM CDT) eGFR >90 >=60 mL/min/1. 73 m2 Comment: Interpretive Data Reference Interval Normal >/= 90 mL/min/1.73m2 Mildly decreased* 60 - 89 mL/min/1.73m2 Mildly to moderately decreased 45 - 59 mL/min/1.73m2 Moderately to severely decreased 30 - 44 mL/min/1.73m2 Severely decreased 15 - 29 mL/min/1.73m2 Kidney Failure < 15 mL/min/1.73m2 *Relative to young adult level Estimated glomerular filtration rate is determined by the 2020 CKD-EPI equation recommended by the National Kidney [employer] (A Unifying Approach to GFR Estimation: Recommendations of the NKF-ASK Task Force on Reassessing the Inclusion of Race in Diagnosing Kidney Disease, JASN 202). The CKD-EPI equation should not be used for patients with unstable renal function and has not been validated in children and those over 70. Current interpretive data was last reviewed 2021. Blood 03/04/2025 1:02 PM CDT 03/04/2025 1:04 PM CDT us Adonis Fox MD LAB BLOOD ORDERABLE S Final Result GLENDY GAMA ([place]) 1 [facility] Department [place] [address] * (ABNORMAL) Differential, auto (03/04/2025 1:02 PM CDT) Neutrophil abs 6.95(H) 1.50 - 6.50 K/cumm Imm gran abs 0.04 0.00 - 0.10 K/cumm [facility] ([place]) Lymphocyte abs 1.27 0.80 - 3.30 K/cumm [facility] ([place]) Monocyte abs 0.57 0.20 - 0.80 K/cumm [facility] ([place]) Eosinophil abs 0.08 0.00 - 0.50 K/cumm [facility] ([place]) Basophil abs 0.02 0.00 - 0.10 K/cumm [facility] ([place]) Neutrophil pct 77.9 % [facility] ([place]) Comment: Interpretive Data Percent cell count reference ranges are not reported, since discordance with absolute values may lead to misinterpretation of CBC data. Current Interpretive Data was last revised on 2017. Imm gran pct 0.4 % [facility] ([place]) Comment: Interpretive Data Percent cell count reference ranges are not reported, since discordance with absolute values may lead to misinterpretation of CBC data. Current Interpretive Data was last revised on 2017. Lymphocyte pct 14.2 % [facility] ([place]) Comment: Interpretive Data Percent cell count reference ranges are not reported, since discordance with absolute values may lead to misinterpretation of CBC data. Current Interpretive Data was last revised on 2017. Monocyte pct 6.4 % [facility] ([place]) Comment: Interpretive Data Percent cell count reference ranges are not reported, since discordance with absolute values may lead to misinterpretation of CBC data. Current Interpretive Data was last revised on 2017. Eosinophil pct 0.9 % [facility] ([place]) Comment: Interpretive Data Percent cell count reference ranges are not reported, since discordance with absolute values may lead to misinterpretation of CBC data. Current Interpretive Data was last revised on 2017. Basophil pct 0.2 % [facility] ([place]) Comment: Interpretive Data Percent cell count reference ranges are not reported, since discordance with absolute values may lead to misinterpretation of CBC data. Current Interpretive Data was last revised on 2017. Blood 03/04/2025 1:02 PM CDT 03/04/2025 1:04 PM CDT us Adonis Fox MD LAB BLOOD ORDERABLE S Final Result [facility] ([place]) 1 [facility] [place] [address] * (ABNORMAL) CBC with auto differential (03/04/2025 1:02 PM CDT) WBC 8.93 3.80 - 9.90 K/cumm Hgb 11.7(L) 11.9 - 15.5 g/dL [facility] ([place]) Hct 35.8 35.6 - 45.5 % [facility] ([place]) Plt 243 150 - 400 K/cumm [facility] ([place]) MPV 9.9 9.1 - 12.3 fL [facility] ([place]) RBC 4.23 3.90 - 5.20 M/cumm [facility] ([place]) MCV 84.6 81.3 - 96.4 fL [facility] ([place]) MCH 27.7 27.1 - 33.3 pg [facility] ([place]) MCHC 32.7 32.3 - 35.7 g/dL [facility] ([place]) RDW CV 14.3 11.1 - 14.9 % [facility] ([place]) RDW SD 44.2 35.7 - 48.1 fL [facility] ([place]) NRBC abs 0.00 0.00 - 0.01 K/cumm [facility] ([place]) Blood 03/04/2025 1:02 PM CDT 03/04/2025 1:04 PM CDT us Adonis Fox MD LAB BLOOD ORDERABLE S Final Result Performing Organization Address City/[facility]/ZIP Co de Phone Number GLENDY GAMA ([place]) 1 [facility] [address] [place] [address] * ABO/Rh (03/04/2025 1:02 PM CDT) Pathologist [facility] ABO/Rh A Positive Blood 03/04/2025 1:02 PM CDT 03/04/2025 1:04 PM CDT Narrative GLENDY GAMA ([place]) - 03/04/2025 1:39 PM CDT Has the patient had Daratumumab or Isatuximab in the past 6 months?->Unknown Adonis Fox MD LAB BLOOD BANK TEST ORDERABLES Final Result Performing Organization Address [facility] Co de Phone Number GLENDY GAMA ([place]) 1 [facility] [address] [place] [address] * Antibody screen (03/04/2025 1:02 PM CDT) Pathologist [facility] Randy, indirect, Gel Interpretation Negative ABSC Blood 03/04/2025 1:02 PM CDT 03/04/2025 1:04 PM CDT Narrative GLENDY GAMA ([place]) - 03/04/2025 1:43 PM CDT Has the patient had Daratumumab or Isatuximab in the past 6 months?->Unknown Adonis Fox MD LAB BLOOD BANK TEST ORDERABLES Final Result GLENDY GAMA ([place]) 1 [facility] [address] [place] [address] * Comprehensive metabolic panel (03/04/2025 1:02 PM CDT) Pathologist [facility] Sodium 140 135 - 145 mmol/L [facility] ([place]) Potassium, pl 4.0 3.3 - 4.9 mmol/L [facility] ([place]) Chloride 103 97 - 110 mmol/L [facility] ([place]) CO2 23 22 - 32 mmol/L [facility] ([place]) Anion gap 14 2 - 15 mmol/L [facility] ([place]) BUN 17 6 - 25 mg/dL [facility] ([place]) Creatinine 0.72 0.60 - 1.10 mg/dL [facility] ([place]) Glucose 94 70 - 199 mg/dL [facility] ([place]) Comment: Interpretive Data Fasting glucose >/= 126 mg/dl is diagnostic for diabetes. Fasting is defined as no caloric intake for at least 8 hours. Fasting glucose between 100 mg/dl to 125 mg/dl is diagnostic of prediabetes. In a patient with classic symptoms of hyperglycemia or hyperglycemic crisis, a random glucose >/= 200 mg/dl is diagnostic for diabetes. In the absence of unequivocal hyperglycemia, results should be confirmed by repeat testing. The classification and Diagnosis of Diabetes Diabetes Care 202; 46: S19-S40. Current interpretive data was last revised 2022. Calcium 9.1 8.5 - 10.3 mg/dL [facility] ([place]) Bilirubin, total 0.5 0.1 - 1.2 mg/dL [facility] ([place]) Protein, pl 7.5 6.5 - 8.5 g/dL [facility] ([place]) Albumin 4.1 3.5 - 5.0 g/dL [facility] ([place]) Alk phos 70 40 - 130 Units/L [facility] ([place]) ALT 13 7 - 45 Units/L [facility] ([place]) AST 23 10 - 45 Units/L [facility] ([place]) Blood 03/04/2025 1:02 PM CDT 03/04/2025 1:04 PM CDT us Adonis Fox MD LAB BLOOD ORDERABLE S Final Result [facility] ([place]) 1 [facility] Department [place] [address] from Last 3 Months Insurance [employer] [facility] CLAIMS MEDICARE FOR LIFE Care Teams Hvac Service Technician Relationship Specialty Start Date End Date Vicente Chavez MD [address] [facility] [address] [place] [address] PCP - General Family Medicine 01/26/19
== END 2025-03-10 10:31 | disposition home or self-care (01) ==
PROVIDERS: PCP Family Medicine
DX: R93.7 Abnormal findings on diagnostic imaging of other parts of musculoskeletal system (principal); V80.010A Animal-rider injured by fall from or being thrown from horse in noncollision accident, initial encounter; M47.896 Other spondylosis, lumbar region; S32.010A Wedge compression fracture of first lumbar vertebra, initial encounter for closed fracture; X58.XXXA Exposure to other specified factors, initial encounter
CPT/HCPCS: 72148